=== PATIENT | female | born 1945 | race Two or more races ===

== ENCOUNTER → 2025-04-05 | Outpatient (CLI) | payer MEDICARE, MEDICAID, SELFPAY ==
--- NOTE | 2025-04-05 14:15 | XR_ITS ---
Examination: Screening digital mammography, bilateral Computer aided detection 3-D breast Tomosynthesis, bilateral Date and time of exam: April 05, 2025 1503 hours Compared to mammograms dating to January 12, 2020 Indication: Screening Technique: Nonmagnified MLO, CC views of the breasts to been obtained, reconstructed from 3-D Tomosynthesis images. R2 computer aided detection program utilized for evaluation of suspicious masses and/or abnormal calcifications. 3-D Tomosynthesis images obtained. Findings: Scattered areas of fibroglandular density Scar formation left breast consistent with treated left breast cancer Benign calcifications No interval suspicious masses Impression: BI-RADS category II: Benign Findings. Recommend 1 year follow-up mammogram.
== END | disposition home or self-care (01) ==
LOC: CDIM 13:53
PROVIDERS: PCP Physician Assistant; Referring Provider Physician Assistant; Visit Provider Physician Assistant
DX: Z12.31 Encounter for screening mammogram for malignant neoplasm of breast (principal); R92.323 Mammographic fibroglandular density, bilateral breasts; R92.1 Mammographic calcification found on diagnostic imaging of breast
CPT/HCPCS: 77063; 77067

== ENCOUNTER 2025-06-07 10:57 | Inpatient (IN) | payer MEDICARE, MEDICAID, SELFPAY ==
[2025-06-07] VITALS (8 sets, daily range): BP systolic 165–183; BP diastolic 55–125; PULSE 66–96; RESP 16–97; TEMP 36.6–37; O2SAT 95–99; BMI 28.7
--- NOTE | 2025-06-07 | XR_ITS ---
Examinations: MRI Brain without intravenous contrast. MRA brain without intravenous contrast. MRA carotids without intravenous contrast 3-D vascular reconstructions Date and time of exam: June 07, 2025, 1834 hrs., Comparison June 25, 2023 Indications: Stroke alert this a.m., onset focal neurologic deficit including right-sided facial droop slurred speech Technique: Multiple axial and sagittal images of the brain have been obtained MRA brain carotid images without contrast obtained, including 3-D postprocessing, vascular maximum intensity projection images Findings: Sellaturcica is not enlarged. The optic chiasm and infundibular stalk are not remarkable. Prepontine and interpeduncular cisterns are not enlarged. No localized enlargement of the medulla or fahad. Fourth ventricle and cerebellar tonsils normal in position. Subacute hemorrhage is not seen. Fourth ventricle is midline. Mass in the cerebellopontine angle region is not evident. 7th and 8th nerve complexes exhibits symmetry. Globes are symmetrical with no retro-orbital mass. Increased white matter signal prominent including old infarct left occipital lobe and old infarct right thalamus Diffusion-weighted images demonstrate no focus of restricted diffusion Mass-effect upon the ventricular system is not identified. MRA carotid images severely degraded by patient motion. 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
--- NOTE | 2025-06-07 11:14 | EKG_ITS ---
[facility] Test Date: 2025-06-07 Pat Name: CATALINA LUTHER Department: Room: - Gender: Female [place] [employer]: : 1945 Requested By: Castro Mittal Order Number: [id number] Reading MD: Castro Mittal Measurements Intervals Sparkill Rate: 63 P: 3 WV: 150 QRS: -36 QRSD: 138 T: -20 QT: 412 QTc: 424 Interpretive Statements SINUS RHYTHM WITH SINUS ARRHYTHMIA INDETERMINATE AXIS RIGHT BUNDLE BRANCH BLOCK [120+ ms QRS DURATION, UPRIGHT V1, 40+ ms S IN I/aVL/V4/V5/V6] MODERATE T-WAVE ABNORMALITY, CONSIDER LATERAL ISCHEMIA [-0.1+ mV T-WAVE IN I/aVL/V5/V6] No previous ECG available for comparison /[id number]/S0/[id number].pdf
--- NOTE | 2025-06-07 11:14 | XR_ITS ---
Examination: CTA carotids with intravenous contrast CTA brain, head with intravenous contrast. 2-D sagittal, coronal reconstructions. 3-D reconstructions. Exam date and time: June 07, 2025, 11:40 AM INDICATIONS: Stroke alert today, onset focal neurologic deficit, blurred vision, stroke alert June 24, 2023, large acute infarct left occipital lobe on MR brain June 25, 2023 CTDI: vol (mGy) 18.7 DLP: (mGycm) 398 Technique: Multiple CTA axial brain, head carotid images post intravenous contrast injection 75 cc, [id number]. 2-D sagittal, coronal reconstructions. 3-D reconstructions, 3-D post processing including vascular maximum intensity projection images. Low dose protocols were performed. One or more of the following dose reduction techniques were used; automated exposure control, adjustment of the mA and/or KV according to patient size, use of iterative reconstruction technique. Findings: No significant common carotid carotid bifurcation or internal carotid artery stenoses Dominant left vertebral artery with no critical stenoses in the neck No cerebral large vessel arterial occlusions or thrombus IMPRESSION: No significant neck arterial stenoses No cerebral large vessel arterial occlusions or thrombus
--- NOTE | 2025-06-07 11:14 | XR_ITS ---
Examination: CT brain head without contrast. 2-D sagittal coronal reconstructions Date and time of exam:June 07, 2025 1134 hours, comparison December 23, 2023 INDICATIONS: Stroke alert, onset focal neurologic deficit dizziness beginning 8:00 AM this morning CTDI: vol (mGy):43.7 DLP: (mGycm):2 Technique: Multiple CT axial sections of the brain have been obtained, 5 mm slice thickness. Contrast has not been administered. 2-D sagittal, coronal reconstructions have been obtained Low dose protocols were performed. One or more of the following dose reduction techniques were used; automated exposure control, adjustment of the mA and/or KV according to patient size, use of iterative reconstruction technique. Findings: No significant ventricular enlargement. Stable cerebral calcifications Stable area of encephalomalacia left occipital lobe Small old appearing infarct in the left cerebellar hemisphere Again noted frontal atrophy Intra-axial or extra-axial hemorrhage density is not seen. No mass effect or midline shift Basal cisterns are not remarkable. Fourth ventricle is midline. Cranial vault intact. Impression: Negative for acute hemorrhage, mass effect or midline shift
--- NOTE | 2025-06-07 11:14 | XR_ITS ---
Examination: AP chest single view Technique one AP portable upright chest single view Date and time: June 07, 2025, 1201 hours INDICATIONS: Stroke alert today. FINDINGS: Normal heart size No aspiration pneumonia Mild accentuation basilar bronchovascular markings Prominent osteopenia IMPRESSION: Basilar bronchitis pattern
--- NOTE | 2025-06-07 11:15 | EDNOTE_ITS ---
ED General RME/HPI General Chief complaint: Neuro Symptoms/Deficit Stated complaint: DIZZINESS AND CHEST PAIN THIS AM Time Seen by Provider: 06/07/25 11:13 Arrival date/time: 06/07/25 10:57 CC: Dizziness, left facial twisting . HPI onset at 8 AM this morning abrupt onset. Patient has a history of a stroke with mildly baseline right sided facial droop and mildly slurred speech which is confirmed as baseline unchanged from previous stroke 2 years ago. Patient states superintendent track took off her blood thinners because she is on too many medications . Family member at bedside's confirms patient's conditions. Patient is otherwise awake alert with no other focal deficits. Related Data Home Medications ?Medication ?Instructions ?Recorded ?Confirmed lorazepam 0.5 mg tablet (Ativan) 0.5 mg PO Q8HR PRN AN XIETY (MILD) 01/18/14 06/07/25 #0 tabs alprazolam 1 mg tablet 1 mg PO Q8HR PRN anxiety 06/07/25 hydrocodone 5 mg-acetaminophen 325 1 tab PO BID PRN pa in 06/07/25 06/07/25 mg tablet latanoprost 0.005 % eye drops 1 drp ophthalmic (eye) H S 06/07/25 06/07/25 omeprazole 40 mg capsule,delayed 40 mg PO DAILY 06/07/25 release Previous Rx's ?Medication ?Instructions ?Recorded lorazepam 0.5 mg tablet 0.5 mg PO Q12HR Anxiety #10 tabs 10/19/15 aspirin 81 mg tablet,delayed 81 mg PO QDAY #30 tabs release atorvastatin 80 mg tablet 80 mg PO QDAY #30 tabs 06/26 Allergies Allergy/AdvReac Type Severity Reaction Status Date / Time No Known Allergies Allergy Verified 06/07/25 11:01 Review of Systems Review of Systems Narrative Review of Systems: GEN: No fever, no chills, no weight loss EYES: No discharge, no visual changes, no pain HEENT: No ear pain, no congestion, no sore throat PULM: No shortness of breath, no cough, no congestion CV: No chest pain, no dyspnea on exertion, no palpitations GI: No nausea, no vomiting, no diarrhea, no pain, no constipation : No frequency, no urgency, no dysuria MUSC/SKEL: No joint pain, no back pain SKIN: No rash PSYCH: No hallucinations, no depression HEME/LYMPH: No easy bleeding or bruising tendencies NEURO: No weakness, no headache Past Medical History Past Medical History CARDIAC: Positive Hypertension; Negative Congestive Heart Failure RESPIRATORY: Negative Chronic Obstructive Pulmonary Disease (COPD) GENITOURINARY: Negative Renal Disease REPRODUCTIVE: Positive Breast Cancer MUSCULOSKELETAL: Positive Arthritis ENDOCRINE: Positive Diabetes Mellitus Type 2; Negative Diabetes Mellitus Type 1 PSYCHO/SOCIAL: Positive Anxiety OTHER HISTORY: Positive Radiation Therapy and Breast Cancer Social History SMOKING STATUS: Never smoker SUBSTANCE USE: does not use ED Exam Narrative Physical exam: [General: Minimal discomfort not in any acute distress Head normocephalic HEENT: Eyes pupils are PERRLA EOMs are intact no vertical or horizontal nystagmus. Mouth Brigantine dry membranes uvula is midline swallow symmetrical phonation is slightly slurred secondary to right sided facial droop note: Related to an old CVA from 2 years ago. All other subsystems within acceptable limits Neck is supple nontender Chest equal chest rise nontender to palpation Respiratory: Clear to auscultation no wheezes crackles or rubs CV: Rate rhythm is regular no murmurs rubs or clicks Abdomen is distended secondary to body habitus soft nontender no masses positive bowel sounds all 4 quadrants Back: No CVA tenderness no spinous process tenderness from cervical spine thoracic and lumbar spine Skin: Intact no petechiae rash induration ulceration or crepitus Extremities: Moving all extremity against resistance cap refill less than 2 seconds neurosensory intact Neuro: Awake alert oriented x3 Glascow coma 15 no focal deficits] Course Course Course Narrative: Per teleneurology TNK was offered but declined. Patient was put on dual antiplatelet Therapy and admitted. Patient's case discussed with Dr. Del Castillo, resident for Dr. Lawanda Henriquez agrees to except the patient for admission. Quality Measures none Orders Category Date Time Status Bedside Blood Glucose NOW Care 06/07/25 11:14 Active Forest Ecology Professor NOW Care 06/07/25 11:14 Active Continuous Pulse Oximetry NOW Care 06/07/25 11:14 Active EKG (ED ONLY) *Do not use* NOW Care 06/07/25 11:14 Completed In and Out Catheter NEEDED Care 06/07/25 11:14 Active Insert IV NOW Care 06/07/25 11:14 Active NIH Stroke Scale now Care 06/07/25 11:14 Active NPO NOW Care 06/07/25 11:14 Active Nurse Swallow Screen x1 Care 06/07/25 11:14 Active Consult to Neurology / Tele-Neurology Routine Cons 06/07/25 11:[address] angio stroke protocol Stat Exams 06/07/25 11:[address] stroke protocol Stat Exams 06/07/25 11:14 Completed EKG (ED Only) Stat Exams 06/07/25 11:14 Draft XR chest 1V portable Stat Exams 06/07/25 11:14 Completed CBC Stat Lab 06/07/25 11:28 Completed Comprehensive Metabolic Panel Stat Lab 06/07/25 11:28 Completed Drug Screen,Urine Stat Lab 06/07/25 11:30 Completed HCG Titer if Positive Stat Lab 06/07/25 11:28 Completed Magnesium Stat Lab 06/07/25 11:28 Completed Partial Thromboplastin Time Stat Lab 06/07/25 11:28 Completed Prothrombin Time with INR Stat Lab 06/07/25 11:28 Completed Troponin I Stat Lab 06/07/25 11:28 Completed Urinalysis, C/S if Indicated Stat Lab 06/07/25 11:30 Completed Urine Culture Stat Lab 06/07/25 11:30 Received Aspirin [Ecotrin] Med 06/07/25 12:06 Discontinued 81 mg PO X1 ONE Clopidogrel [Plavix] Med 06/07/25 12:06 Discontinued 300 mg PO X1 ONE Ondansetron Inj [Zofran Inj] Med 06/07/25 11:14 Discontinued 4 mg IVP Q4HR PRN Oxygen Delivery NOW RT 06/07/25 11:14 Active Vital Signs Vital signs: Vital Signs Temperature 98.6 F 06/07/25 11:07 Pulse Rate 84 06/07/25 11:07 Respiratory Rate 16 06/07/25 11:07 Blood Pressure 168/80 H 06/07/25 11:07 Pulse Oximetry (%) 95 06/07/25 11:07 Oxygen Delivery Method Room Air 06/07/25 11:07 Discharge Plan Plan Patient Disposition: Admit Acute Care w/in Hospital Patient condition on transfer: Stable Problem List Clinical Impression: CVA (cerebral vascular accident) PA/CURRICULUM ASSISTANT PRINCIPAL Supervising Physician PA/CURRICULUM ASSISTANT PRINCIPAL Supervising Physician: Castro Mayo ENP [facility] Clinical Information Provided by: patient Medical Records reviewed [facility] Meds/Rx considered, not ordered None Labs/Rad/Tests considered, not ordered None Chronic Illness/Social Conditions Explain: Prior CVA note: Was taken off blood thinner medications by superintendent track. Labs Labs: interpreted by me Lab(s) Interpretation(s): CBC shows a mild leukocytosis 11.1 no anemia thrombocytopenia Coags within acceptable limits CMP shows glucose of 119 otherwise no other electrolyte imbalances no renal impairment transaminitis T. bili elevation Troponin is undetectable UDS is positive for benzos Imaging Imaging interpretation: interpreted by me Imaging Interpretation(s): CT head is interpreted by me read by radiology as negative for any acute finding CTA head and neck is interpreted me read by radiology shows no LVO's, no stenoses Medication Administration(s) none Medication Administration History Acetaminophen (Acetaminophen 325 Mg Tablet) 650 mg PO Q6H PRN PRN Reason: Fever >100.1 or pain Stop: 07/07/25 14:46 Aspirin (Aspirin Ec 81 Mg Tabec) 81 mg PO DAILY YORDAN Stop: 07/08/25 08:59 Atorvastatin Calcium (Atorvastatin Calcium 20 Mg Tablet) 80 mg PO HS YORDAN Stop: 07/07/25 20:59 Dextrose (Dextrose 50%-Water Inj 50 Ml Syringe) 25 ml IV Q15MIN PRN PRN Reason: BG 50-70 responsive npo pt Stop: 07/07/25 16:53 Dextrose (Dextrose 50%-Water Inj 50 Ml Syringe) 50 ml IV Q15MIN PRN PRN Reason: BG <50 OR BG <70 & pt unresponsive Stop: 07/07/25 16:53 Enoxaparin Sodium (Enoxaparin Sod Inj 40 Mg/0.4 Ml Syringe) 40 mg SC QDAY YORDAN Stop: 06/22/25 08:59 Glucagon (Glucagon Inj 1 Mg Vial) 1 mg IM Q15MIN PRN PRN Reason: BG <70, and no IV access Insulin Human Lispro (Insulin Lispro (Admelog) 1 Unit/0.01 Ml Unit) 0 unit SC Q6HR YORDAN; Protocol Stop: 07/07/25 17:59 Labetalol HCl (Labetalol Inj 5 Mg/Ml Vial 20 Ml) 10 mg IVP Q4HR PRN PRN Reason: SBP>220/110 Stop: 07/07/25 14:56 Ondansetron HCl (Ondansetron Inj 2 Mg/Ml Inj 2 Ml) 4 mg IVP Q6H PRN; Protocol PRN Reason: NAUSEA OR VOMITING Stop: 07/07/25 14:46 Pantoprazole Sodium (Pantoprazole Inj 40 Mg Vial) 40 mg IVP QDAY YORDAN Stop: 07/08/25 08:59 Sennosides (Senna Tablet) 1 tab PO QDAY PRN; Protocol PRN Reason: constipation Stop: 07/07/25 14:46 Sennosides (Senna/Docusate Sod 1 Tab Tablet) 1 tab PO QDAY PRN; Protocol PRN Reason: CONSTIPATION Stop: 07/07/25 16:47 Discontinued Medications Aspirin (Aspirin Ec 81 Mg Tabec) 81 mg PO X1 ONE Stop: 06/07/25 12:07 Last Admin: 06/07/25 12:16 Dose: 81 mg Documented By: VL Clopidogrel Bisulfate (Clopidogrel Bisulfate 75 Mg Tablet) 300 mg PO X1 ONE Stop: 06/07/25 12:07 Last Admin: 06/07/25 12:16 Dose: 300 mg Documented By: KATE Clopidogrel Bisulfate (Clopidogrel Bisulfate 75 Mg Tablet) 75 mg PO DAILY [facility] Stop: 07/08/25 08:59 Ondansetron HCl (Ondansetron Inj 2 Mg/Ml Inj 2 Ml) 4 mg IVP Q4HR PRN PRN Reason: NAUSEA OR VOMITING Stop: 07/07/25 11:13 Pharmacy Consult (Pharmacy To Consult Patient) 1 each XX PRN PRN PRN Reason: CONSULT Stop: 07/07/25 20:20 Diagnosis Differential Diagnosis ED Complaint MDM: CVA TIA intracranial hemorrhage
[2025-06-07 11:36] LABS: Basophils # (Auto) 0.0 Thou/mm3 (0.0-0.2); Basophils % (Auto) 0 % (0-2.5); Eosinophils # (Auto) 0.5 Thou/mm3 (0.0-0.5); Eosinophils % (Auto) 5 % (0-10); Hematocrit 40.0 % (36.0-46.0); Hemoglobin 13.1 g/dL (12.0-16.0); Immature Granulocytes Auto 0.04 Thou/mm3 (0.00-0.00); Lymphocytes # (Auto) 3.0 Thou/mm3 (1.0-4.8); Lymphocytes % (Auto) 27 % (10-50); Mean Corpuscular HGB Conc 32.8 g/dl (31.0-37.0); Mean Corpuscular Hemoglobin 29.7 pg (25.0-35.0); Mean Corpuscular Volume 91 fL (80-100); Monocytes # (Auto) 0.6 Thou/mm3 (0.0-0.8); Monocytes % (Auto) 5 % (0-12); Neutrophils # (Auto) 6.9 Thou/mm3 (1.8-7.7); Neutrophils % (Auto) 63 % (37-80); Nucleated Red Blood Cell # 0.00 Thou/mm3 (0.00-0.00); Nucleated Red Blood Cell % 0 /100 WBC (0); Platelet Count 268 Thou/mm3 (140-440); RDW Standard Deviation 45.4 fL (36.4-46.3); Red Blood Count 4.41 Miln/mm3 (4.00-5.20); White Blood Count 11.1 Thou/mm3 (3.6-11.0)
[2025-06-07 11:51] LABS: INR 1.0 (0.9-1.3); Partial Thromboplastin Time 26.1 Seconds (22.0-36.0); Prothrombin Time 10.9 Seconds (9.0-12.2)
[2025-06-07 11:53] LABS: Alanine Aminotransferase 16 U/L (10-49); Albumin, Serum 5.0 gm/dL (3.4-4.8); Albumin/Globulin Ratio 1.7 (1.2-2.2); Alkaline Phosphatase 80 U/L (46-116); Anion Gap 10 (7-16); Aspartate Amino Transferase 23 U/L (0-34); BUN/Creatinine Ratio 10 Ratio (12-20); Bilirubin,Total 0.3 mg/dL (0.3-1.2); Blood Urea Nitrogen 9 mg/dL (9-23); Calcium 9.6 mg/dL (8.3-10.6); Calcium (Corrected) 9.6 mg/dL (8.5-10.1); Carbon Dioxide 23.4 mMol/L (20.0-31.0); Chloride 106 mMol/L (98-107); Creatinine (Component) 0.9 mg/dL (0.6-1.3); Estimated Creatinine Clearance 47.6 mL/min (>60); Globulin 3.0 gm/dL (2.3-3.5); Glucose 119 mg/dL (74-106); Magnesium 2.1 mg/dL (1.6-2.6); Osmolality,Calculated 277 (275-295); Potassium 4.1 mMol/L (3.4-5.1); Sodium 139 mMol/L (136-145); Total Protein 8.0 gm/dL (5.7-8.2); Troponin I < 0.002 ng/mL (0.0-0.045); eGFR > 60 See Note
[2025-06-07 11:59] LABS: HCG Titer if Positive Negative
--- NOTE | 2025-06-07 12:14 | ESCONSULT_ITS ---
History of Present Illness Consult Narrative cc:: cc: Meds Home Medications and Allergies Home Medications ?Medication ?Instructions ?Recorded ?Confirmed ?Type lorazepam 0.5 mg tablet (Ativan) 0.5 mg PO Q8HR PRN AN XIETY (MILD) 01/18/14 History #0 tabs Allergies Allergy/AdvReac Type Severity Reaction Status Date / Time No Known Allergies Allergy Verified 06/07/25 11:01 Exam - Neurology Vital Signs Temp Pulse Resp BP Pulse Ox O2 Del Method 98.6 F 84 16 168/80 H 95 Room Air 06/07/25 11:07 06/07/25 11:07 06/07/25 11:07 06/07/25 11:07 06/07/25 11:07 06/07/25 11:07 Results Labs 06/07/25 11:28 06/07/25 11:28 Labs: Short CBC 06/07/25 Range/Units 11:28 WBC 11.1 H (3.6-11.0) Thou/mm3 Hgb 13.1 (12.0-16.0) g/dL Hct 40.0 (36.0-46.0) % Plt Count 268 (140-440) Thou/mm3 BMP 06/07/25 11:28 Sodium 139 Potassium 4.1 Chloride 106 Carbon Dioxide 23.4 BUN 9 Creatinine 0.9 Glucose 119 H Calcium 9.6 Cardiac Enzymes 06/07/25 Range/Units 11:28 Troponin I < 0.002 (0.0-0.045) ng/mL Liver Function 06/07/25 Range/Units 11:28 Total Bilirubin 0.3 (0.3-1.2) mg/dL AST 23 (0-34) U/L ALT 16 (10-49) U/L Alkaline Phosphatase 80 (46-116) U/L Albumin 5.0 H (3.4-4.8) gm/dL Impressions Impression: [facility] Patient Name:???CATALINA LUTHER Date of :???1945 Identification Number:??? Date of Service:???06/07/2025 11:18:23 Diagnosis:?R42 - Dizziness/ Vertigo/ Giddiness ?R26.81 - Unsteady gait Impression: ?PT is a 80 yo female with hx of a prior left occipital stroke in June 2023 with some baseline gait unsteadiness, basilar artery stenosis, HTN, HLP with acute onset of gait unsteadiness since 08:00 today. ON exam, NIHSS was 0 and pt was able to walk from her stretcher to the CT scan with only standby assist although she states she felt unsteady. ?Because pt was within the window for iv-thrombolytics ?with no contraindications, the role of TNK as well as the risks and benefits were discussed with patient and her son. PT and her son decided not to receive TNK due to her improving deficits and concern about the risks. CTA head and neck showed no obvious large vessel occlusion, but will follow-up with the final report. . ? ?Recommend stroke work-up with a routine MRI brain without contrast, telemetry, TTE, lipid panel, hemoglobin AIC. ? ?Can start pt on dual antiplatelet therapy with Plavix 300 mg and ASA 81 mg x 1 in the ED once the patient passes a dysphagia screen or swallow evaluation followed by ASA 81 mg daily and Plavix 75 mg daily ? ?Would allow permissive HTN up to 220/120 x 24 hours. Our recommendations are outlined below. Recommendations: ? Stroke/Telemetry Floor ? Neuro Checks (Q4) ? Bedside Swallow Eval ? DVT Prophylaxis ? IV Fluids, Normal Saline ? Head of Bed 30 Degrees ? Euglycemia and Avoid Hyperthermia (PRN Acetaminophen) ? Antihypertensives PRN if Blood pressure is greater than 220/120 or there is a concern for End organ damage/contraindications for permissive HTN. If blood pressure is greater than 220/120 give labetalol PO or IV or Vasotec IV with a goal of 15% reduction in BP during the first 24 hours. ?MRI brain without contrast ?TTE ?Lipid panel ?Hemoglobin AIC?Start pt on dual antiplatelet therapy with Plavix 300 mg and ASA 81 mg x 1 in the ED once the patient passes a dysphagia screen or swallow evaluation followed by ASA 81 mg daily and Plavix 75 mg daily Sign Out: ? Discussed with Emergency Department Provider Metrics: Last Known Well: 06/07/2025 08:00:00 Dispatch Time: 06/07/2025 11:18:23 Arrival Time: 06/07/2025 10:57:00 Initial Response Time: 06/07/2025 11:21:01Symptoms: Dizziness. Initial patient interaction: 06/07/2025 11:24:45 NIHSS Assessment Completed: 06/07/2025 11:41:48Patient is not a candidate for Thrombolytic. Thrombolytic Medical Decision: 06/07/2025 11:59:02Patient was not deemed candidate for Thrombolytic because of following reasons: Patient/Family declined . CT Head: I personally reviewed all the CT images that were available to me and it showed: encephalomalacia in the left occipital [employer] territory, but no acute ischemic changes, no ICH Primary Provider Notified of Diagnostic Impression and Management Plan on: 06/07/2025 12:05:47 History of Present Illness:Patient is a 80 year old Female. Patient was brought by private transportation with symptoms of Dizziness. PT is a 80 yo female with hx of a prior left occipital stroke in June 2023 with some baseline gait unsteadiness, basilar artery stenosis, HTN, HLP who presents to the ED with dizziness. PT reports she woke up today in her USOH and took a shower. AT 8 AM, she suddenly because dizziness which she describes as a feeling of giat unsteadiness like she is going to fall. She had no headache, visual changes, weakness, numbness. Pt walks with a cane at baseline. Pt's son states her clinical exercise specialist took her off of antiplatelet therapy a few months ago for unclear reasons. Past Medical History: ?Hypertension ?Diabetes Mellitus ?Stroke ?There is no history of Atrial Fibrillation ?There is no history of Coronary Artery Disease Other PMH:? breast cancer Medications: No Anticoagulant use? No Antiplatelet use Reviewed EMR for current medications Allergies:? NKDA Social History: Smoking: Yes Family History: There is no family history of premature cerebrovascular disease pertinent to this consultation ROS : 14 Points Review of Systems was performed and was negative except mentioned in HPI. Past Surgical History: There Is No Surgical History Contributory To Today?s Visit Examination: BP(168/80),?Pulse(84),?Blood Glucose(140) 1A: Level of Consciousness - Alert; keenly responsive?+ 0 1B: Ask Month and Age - Both Questions Right?+ 0 1C: Blink Eyes & Squeeze Hands - Performs Both Tasks?+ 0 2: Test Horizontal Extraocular Movements - Normal?+ 0 3: Test Visual Bolden - No Visual Loss?+ 0 4: Test Facial Palsy (Use Grimace if Obtunded) - Normal symmetry?+ 0 5A: Test Left Arm Motor Drift - No Drift for 10 Seconds?+ 0 5B: Test Right Arm Motor Drift - No Drift for 10 Seconds?+ 0 6A: Test Left Leg Motor Drift - No Drift for 5 Seconds?+ 0 6B: Test Right Leg Motor Drift - No Drift for 5 Seconds?+ 0 7: Test Limb Ataxia (FNF/Heel-[place]) - No Ataxia?+ 0 8: Test Sensation - Normal; No sensory loss?+ 0 9: Test Language/Aphasia - Normal; No aphasia?+ 0 10: Test Dysarthria - Normal?+ 0 11: Test Extinction/Inattention - No abnormality?+ 0 NIHSS Score:?0 NIHSS Free Text :?PT was unable to walk a few steps to the CTA table from the gurnery unassisted. Pre-Morbid Modified [place] Scale: 1 Points = No significant disability despite symptoms; able to carry out all usual duties and activities Spoke with :?Dannie Mayo NP This consult was conducted in real time using interactive audio and video technology. Patient was informed of the technology being used for this visit and agreed to proceed. Patient located in hospital and provider located at home/office setting. Patient is being evaluated for possible acute neurologic impairment and high probability of imminent or life-threatening deterioration. I spent total of 51 minutes providing care to this patient, including time for face to face visit via telemedicine, review of medical records, imaging studies and discussion of findings with providers, the patient and/or family. Dr Iesha Duarte [facility] For Inpatient follow-up with [facility] physician please call [facility] at . As we are not an outpatient service for any post hospital discharge needs please contact the hospital for assistance. If you have any questions for the [facility] physicians or need to reconsult for clinical or diagnostic changes please contact us via [facility] at . Signature :Ugo Duarte
[2025-06-07] MEDS: ASPIRIN EC 81 MG TABEC PO (12:16)
[2025-06-07] MEDS: CLOPIDOGREL BISULFATE 75 MG TABLET 300 MG PO (12:16)
[2025-06-07 12:20] LABS: Collection Type, Urine Clean Catch
[2025-06-07 12:45] LABS: Amphetamine/Methamp Scrn,U Negative (Negative); Barbiturate Screen,Urine Negative (Negative); Benzodiazepines Screen,Urine Positive (Negative); Benzoylecgonine Screen, Ur Negative (Negative); Fentanyl Screen,Urine Negative (Negative); Opiate Screen,Urine Negative (Negative); THC Screen,Urine Negative (Negative)
[2025-06-07 12:48] LABS: Bacteria,Urine 3+; Bilirubin,Urine Negative (Negative); Blood,Urine 1+ (Negative); Clarity,Urine Turbid (Clear/Hazy); Color,Urine Lt-Yellow (Lt Yel-Yel); Glucose, Urine Negative (Negative); Ketones,Urine Negative (Negative); Leukocyte Esterase,Urine Positive (Negative); Nitrite,Urine Positive (Negative); PH,Urine 7.0 (5.0-7.0); Protein,Urine Negative (Neg - Trace); RBC,Urine 20 /hpf (0-3); Specific Gravity,Urine 1.005 (1.001-1.035); Squamous Epithelial Cell,Urine 1 /hpf (0-5); Urobilinogen,Urine Negative mg/dL (0.0-1.0); WBC,Urine 253 /hpf (0-5)
[2025-06-07 13:19] LABS: Culture Indicated,Urine Yes
--- NOTE | 2025-06-07 14:33 | PD.RESCONSUL ---
HPI Data of Consult Consult date: 06/07/25 Primary Care Provider: Ping Henry PA-C Consult Narrative Reason for consult: stroke w/up History of present illness: This patient is a 78-year-old female with past medical history of left occipital lobe stroke in June 2023 with baseline gait unsteadiness, basilar artery stenosis, anxiety, esophageal ulcers, hypertension, type 2 diabetes, breast cancer in remission, osteoporosis and osteoarthritis presented to the ED on 06/07/2025 with acute onset gait unsteadiness noted at 8 AM in the morning. Patient was able to ambulate out of the stretcher and was able to standby with assistance although she stated that she feels unsteady. Although patient was within the window of IV thrombolytics with no contraindication, patient and her son refused to receive TNK due to improvement in her deficits and concerns about the risk. Patient denied any loss of consciousness, chest pain, breathing problem or any other issue. NIHSS score 0. Head CT and head and neck CTA showed no acute changes. Labs showed hemoglobin 13, white count 11 and platelet normal. Electrolyte panel unremarkable. Blood glucose 119. Patient was given loading dose of Plavix 300 mg and aspirin 81 mg x 1 in the ED. Patient passed dysphagia screen. Patient is admitted for further stroke workup. Per patient's son, patient was going to office for PCP [Dr. Feng] for follow-up and felt dizzy associated with headache. No loss of consciousness or vision changes reported. Denied any chest pain. Patient felt achy but no acute weakness reported. Past medical history as above Past surgical history:Left side mastectomy SH: Smokes cigarettes 1 or 2 cigarettes x 30 yrs ago, Denies drinking alcohol or illicit drug use Allergies: No known drug allergies FH: No family history of CVA. Home medications: alprazolam 0.5 mg half tablet TID for anxiety, pantoprazole 40 mg once daily Recommended to continue aspirin 81 mg once daily and atorvastatin 80 mg HS daily. DC Plavix. Allowing permissive hypertension for first 24 hours. MRI brain was negative for stroke. Will follow-up echo with bubble study. Will follow other blood labs.Antihypertensives PRN if Blood pressure is greater than 220/120 or there is a concern for End organ damage/contraindications for permissive HTN. If blood pressure is greater than 220/120 give labetalol PO or IV or Vasotec IV with a goal of 15% reduction in BP during the first 24 hours. cc:: cc: Review of Systems Review of Systems Systems Reviewed: All systems reviewed, normal except as documented Past Medical History Past Medical History CARDIAC: Positive Hypertension; Negative Congestive Heart Failure RESPIRATORY: Negative Chronic Obstructive Pulmonary Disease (COPD) GENITOURINARY: Negative Renal Disease REPRODUCTIVE: Positive Breast Cancer MUSCULOSKELETAL: Positive Arthritis ENDOCRINE: Positive Diabetes Mellitus Type 2; Negative Diabetes Mellitus Type 1 PSYCHO/SOCIAL: Positive Anxiety OTHER HISTORY: Positive Radiation Therapy and Breast Cancer Social History SMOKING STATUS: Never smoker SUBSTANCE USE: does not use Exam Vital Signs Temp Pulse Resp BP Pulse Ox O2 Del Method 98.6 F 84 16 168/80 H 95 Room Air 06/07/25 11:07 06/07/25 11:07 06/07/25 11:07 06/07/25 11:07 06/07/25 11:07 06/07/25 11:07 Narrative Exam GENERAL APPEARANCE: AxOx4, generally well-appearing female no acute distress. HEENT: NC, AT. MMM. EOMI, clear conjunctiva, oropharynx clear. NECK: Supple without lymphadenopathy. No stiffness or restricted ROM. HEART:Regular rate and regular rhythm, normal S1/S2, no m/r/g LUNGS: CTAB, moving air well. No crackles or wheezes are heard. ABDOMEN: Soft, nontender, nondistended with good bowel sounds heard. BACK: No CVAT, no obvious deformity. EXTREMITIES: Without cyanosis, clubbing or edema. NEUROLOGICAL: Grossly nonfocal. Alert and oriented, moving all 4 extremities. CN not formally tested but appear grossly intact. Headache and Dizziness+ Skin: Warm and dry without any rash. Psych: appriopriate mood and affect Results Labs 06/08/25 04:56 06/08/25 04:56 Labs: Short CBC 06/07/25 Range/Units 11:28 WBC 11.1 H (3.6-11.0) Thou/mm3 Hgb 13.1 (12.0-16.0) g/dL Hct 40.0 (36.0-46.0) % Plt Count 268 (140-440) Thou/mm3 BMP 06/07/25 11:28 Sodium 139 Potassium 4.1 Chloride 106 Carbon Dioxide 23.4 BUN 9 Creatinine 0.9 Glucose 119 H Calcium 9.6 Cardiac Enzymes 06/07/25 Range/Units 11:28 Troponin I < 0.002 (0.0-0.045) ng/mL Liver Function 06/07/25 Range/Units 11:28 Total Bilirubin 0.3 (0.3-1.2) mg/dL AST 23 (0-34) U/L ALT 16 (10-49) U/L Alkaline Phosphatase 80 (46-116) U/L Albumin 5.0 H (3.4-4.8) gm/dL Urine 06/07/25 Range/Units 11:30 Urine Color Lt-Yellow (Lt Yel-Yel) Urine Clarity Turbid A (Clear/Hazy) Urine pH 7.0 (5.0-7.0) Ur Specific [place] 1.005 (1.001-1.035) Urine Protein Negative (Neg - Trace) Urine Glucose (UA) Negative (Negative) Quality Measures Quality Measures VTE prophylaxis and stroke Suspected type of Stroke: Unknown at this time Last known well (date): 06/07/25 Last known well (time): 08:00 Tenecteplase given: Reason(s) Tenecteplase not given: Refusal not given Rehab services: PT evaluation ordered and Speech Language Pathology eval ordered VTE Prophylaxis: pharmaceutical Antithrombotic by day 2:: not indicated (describe) Statin ordered: >75 y/o moderate or high intensity dose Anticoagulation ordered for A-fib or flutter (current or hx): not indicated Advance care planning discussed with:: patient Medications Home Medications and Allergies Home Medications ?Medication ?Instructions ?Recorded ?Confirmed ?Type alprazolam 1 mg tablet 1 mg PO Q8HR PRN anxiety 06/07/25 06/07/25 History hydrocodone 5 mg-acetaminophen 325 1 tab PO BID PRN pain 06/07/25 06/07/25 History mg tablet latanoprost 0.005 % eye drops 1 drp ophthalmic (eye) HS 06/07/25 06/07/25 History omeprazole 40 mg capsule,delayed 40 mg PO DAILY 06/07/25 06/07/25 History release Allergies Allergy/AdvReac Type Severity Reaction Status Date / Time No Known Allergies Allergy Verified 06/07/25 11:01 Visit Medications Ondansetron HCl (Ondansetron Inj 2 Mg/Ml Inj 2 Ml) 4 mg IVP Q4HR PRN PRN Reason: NAUSEA OR VOMITING Stop: 07/07/25 11:13 Discontinued Medications Aspirin (Aspirin Ec 81 Mg Tabec) 81 mg PO X1 ONE Stop: 06/07/25 12:07 Last Admin: 06/07/25 12:16 Dose: 81 mg Clopidogrel Bisulfate (Clopidogrel Bisulfate 75 Mg Tablet) 300 mg PO X1 ONE Stop: 06/07/25 12:07 Last Admin: 06/07/25 12:16 Dose: 300 mg Assessment & Plan Plan This patient is a 78-year-old female with past medical history of left occipital lobe stroke in June 2023 with baseline gait unsteadiness, basilar artery stenosis, anxiety, esophageal ulcers, hypertension, type 2 diabetes, breast cancer in remission, osteoporosis and osteoarthritis presented to the ED on 06/07/2025 with acute onset gait unsteadiness noted at 8 AM in the morning. Symptoms started improving. CT brain without contrast and head and neck CTA were negative. Admitted for stroke workup. #Stroke workup #Gait unsteadiness ? History of prior stroke occipital lobe June 2023 Patient presented with acute onset gait unsteadiness around 8 AM in the morning. Patient was within the window of receiving TNK however patient and her son refused given improvement in the deficits and risks involved with TNK. Aspirin and Plavix bolus were given x 1 in the ED. EKG showed sinus rhythm. QTc 424. Head CT and head and neck CTA showed no acute pathology. Brain MRI was negative. No acute infarct.Large old infarct left occipital lobe. Small old infarct right thalamus Plan: Recommended to continue aspirin 81 mg once daily and atorvastatin 80 mg HS daily. DC Plavix as MRI brain is negative for acute stroke Rec one antiplatelet therapy given hx of gastric ulcers F/U with echo with bubble study Physical therapy Allowing permissive hypertension for first 24 hours Neurochecks Q4 hourly Notify Provider is SBP>220 and DBP>120 or less than 140/90 for first 24 h #History of type 2 diabetes #History of gastric ulcers #History of osteoporosis #History of breast cancer in remission Rest of the management as per primary care team. -- Plan of care discussed with neurologist, Dr Kate Thompson MD, PGY 3 Attending Provider Attestation/Addendum I have seen and examined the patient at the bedside and I agreed with the resident's findings, assessment and plan of care. Patient presenting symptoms are most likely related to either brainstem TIA/vertebrobasilar insufficiency. Reassurance given to the patient regarding the negative MRI brain for acute stroke. Continue with aspirin alone with statin with history of gastric ulcers in the past.
--- NOTE | 2025-06-07 14:47 | ECHO_ITS ---
Transthoracic Echo Report Ht (in): 62 Wt (lb): 157 Exam Location: [facility] Status: Emergency Physician Interventional Cardiologist: Lubna De Santiago Indications: Procedure Performed: BP: 124 / 55 HR: 68 MEASUREMENTS (Male / Female) Normal Values 2D ECHO LV Diastolic Diameter PLAX 4.5 cm 4.2 - 5.9 / 3.9 - 5.3 cm LV Systolic Diameter PLAX 2.9 cm IVS Diastolic Thickness 1.0 cm 0.6 - 1.0 / 0.6 - 0.9 cm LVPW Diastolic Thickness 1.0 cm 0.6 - 1.0 / 0.6 - 0.9 cm LV Relative Wall Thickness 0.4 LVOT Diameter 1.9 cm Ascending Aorta Diameter 3.0 cm M-MODE AV Cusp Separation MM 1.5 cm DOPPLER AV Peak Velocity 130.0 cm/s AV Peak Gradient 6.8 mmHg AV Mean Gradient 4.0 mmHg AV Velocity Time Integral 28.0 cm LVOT Peak Velocity 90.0 cm/s LVOT Peak Gradient 3.2 mmHg LVOT Velocity Time Integral 18.7 cm LVOT Cardiac Index 2016.9 cm?/min?m? AV Area Cont Eq vti 1.9 cm? AV Area Cont Eq pk 2.0 cm? MV Area PHT 3.1 cm? Mitral E Point Velocity 69.1 cm/s Mitral A Point Velocity 88.6 cm/s Mitral E to A Ratio 0.8 LV E' Lateral Velocity 8.4 cm/s Mitral E to LV E' Lateral Ratio 8.2 LV E' Septal Velocity 6.3 cm/s Mitral E to LV E' Septal Ratio 11.0 TR Peak Velocity 149.7 cm/s TR Peak Gradient 9.0 mmHg PV Peak Velocity 90.5 cm/s PV Peak Gradient 3.3 mmHg FINDINGS Left Ventricle Normal left ventricular size, wall thickness, systolic function with no obvious regional wall motion abnormalities. Normal left ventricular diastolic filling pattern for age. The ejection fraction is visually estimated at 55 %. Right Ventricle The right ventricle is normal in size and systolic function. Left Atrium The left atrium is normal by two-dimensional, color flow and Doppler imaging with no structural abnormalities, no thrombus formation present. Right Atrium The right atrium is normal by two-dimensional imaging, color flow and Doppler imaging with no structural abnormalities, no thrombus formation present. Atrial Septum The interatrial septum appears normal with no evidence of a shunt. Negative bubble study.No [id number] shunt demonstrated by agitated saline injection. Aorta The aorta is normal by two-dimensional, color flow and Doppler interrogation. Mitral Valve The mitral valve is normal by two-dimensional, color flow and Doppler interrogation.Trace mitral regurgitation. Aortic Valve The aortic valve is trileaflet. Mild sclerosis without stenosis. There is no significant aortic valve regurgitation. Tricuspid Valve The tricuspid valve is normal by two-dimensional, color flow and Doppler interrogation.there is trace tricuspid valve regurgitation. Pulmonic Valve The pulmonic valve is not well visualized. There is no significant pulmonic valve regurgitation. Vessels The pulmonary artery appears normal. The inferior vena cava pulmonary and hepatic veins appear normal. Pericardium The pericardium is normal by two-dimensional imaging. There is no significant pericardial effusion. CONCLUSIONS Indication: CVA workup Poor images over all but Bubble study was negative for any PFO or ASD. Consider WINIFRED if high index of clinical supsicion to rule out ant LA/ BETTIE thrombus. Normal left ventricular size and function. Estimated ejection fraction is 60- 65%. Stage 1 diastolic dysfunction. Normal Right ventricular size and function. Normal RVSP. Trace MR, TR and Mild AV sclerosis without stenosis. No significant change since the prior study of 06/26/2023 Darvin Dos Santos (Electronically Signed) Final Date: 08 June 2025 14:29
--- NOTE | 2025-06-07 15:52 | ESHP_ITS ---
<Statement entered by Charles Rae MD - 06/10/25 17:41> I reviewed above note and agree with findings and plans. I have also personally examined the patient with medicine team and went over assessment and plan with medical team including human resources intern and resident physician. <Statement entered by Alisa Del Castillo MD - 06/07/25 19:37> Patient is 80 yr female with PMH of CVA about 2 years ago with right hemiplegia, esophageal ulcers, t2dm, breast cancer in remission, and OA who presented to the ED presenting with weakness, left facial droop that started this morning. Patient was with her son going to PCP when symptoms began. They promptly left for the ED and telemetry neuro was consulted. NIHSS score 0.CTA head, CTA head and neck were negative. Teleneuro recommended TNK however son declined at that time. Symptoms have since resolved. Admit patient for completing stroke workup. Resume aspirin, Plavix, atorvastatin starting tomorrow. The patient's management plan was discussed with my attending physician Dr. Rae. Alisa Del Castillo, PGY-2 Documentation for date of: 06/07/25 HPI History of Present Illness Chief complaint: L face droop and slurred speech History of present illness: Ms Puga is a 80 yo woman with a pmh significant for CVA about 2 years ago with right hemiplegia, esophageal ulcers, t2dm, breast cancer in remission, and OA who presented to the ED with cc of L facial weakness and ground level fall in her bathroom. She states that she had an appointment scheduled to go to her PCP today, before she was feeling unwell when she woke up and was getting ready for her appointment. Her son noted that her L face was slighly contorted. She lives alone and is typically independent of her adls and iadls. Patient may not have been taking clopidogrel. unclear why. Social History: no smoking, no drinking, lives alone and is independent of adls and iadls PMH: breast cancer now in remission Surgical Hx: Left breast cancer surgery Med rec pending : ASA, atorvastatin 80, clopidogrel, lorazapam, meloxicam ROS pt endorses weakness and dizziness pt denies nausea, vision changes, ED course: VSS Pertinent labs WBC 11, UA + nitrites + 3+ bacteria, pending Ucx, Utox + benzos Pertinent imaging - CT Head: Negative for acute hemorrhage, mass effect or midline shift - CTA head and neck: No significant neck arterial stenoses No cerebral large vessel arterial occlusions or thrombus Tx ASA 81x1 plavix 300 x1 Pt admitted for stroke rule out. Exam Vital Signs Temp Pulse Resp BP Pulse Ox O2 Del Method 98.6 F 84 16 168/80 H 95 Room Air 06/07/25 11:07 06/07/25 15:09 06/07/25 15:09 06/07/25 11:07 06/07/25 11:07 06/07/25 11:07 Narrative Exam GENERAL: no acute distress, AAO x3, comfortably laying in bed HEENT: Head AT/ NC. Mucous membranes moist. PERRL. , poor dentition NECK: Supple, no lymphadenopathy, no carotid bruits. CARDIOVASCULAR: RRR. Normal S1/S2, No m/r/g. No pitting edema of bilateral LEs. RESPIRATORY: CTAB. No wheezing, rhonchi, crackles. GASTROINTESTINAL: Abdomen soft, non tender no palpable masses. Bowel sounds present MUSCULOSKELETAL:? No cyanosis or edema, no visible joint swelling. NEUROLOGICAL: Right flattening of nasolabial fold (chronic), no deficits noted on the L face. some slurred speech. able to lift extremities antigravity. PSYCHIATRIC: Awake and alert, not agitated, normal mood and affect. SKIN: No obvious rashes, no jaundice, normal turgor. Results: Labs 06/07/25 11:28 06/07/25 11:28 Labs: Short CBC 06/07/25 Range/Units 11:28 WBC 11.1 H (3.6-11.0) Thou/mm3 Hgb 13.1 (12.0-16.0) g/dL Hct 40.0 (36.0-46.0) % Plt Count 268 (140-440) Thou/mm3 BMP 06/07/25 11:28 Sodium 139 Potassium 4.1 Chloride 106 Carbon Dioxide 23.4 BUN 9 Creatinine 0.9 Glucose 119 H Calcium 9.6 Cardiac Enzymes 06/07/25 Range/Units 11:28 Troponin I < 0.002 (0.0-0.045) ng/mL Liver Function 06/07/25 Range/Units 11:28 Total Bilirubin 0.3 (0.3-1.2) mg/dL AST 23 (0-34) U/L ALT 16 (10-49) U/L Alkaline Phosphatase 80 (46-116) U/L Albumin 5.0 H (3.4-4.8) gm/dL Urine 06/07/25 Range/Units 11:30 Urine Color Lt-Yellow (Lt Yel-Yel) Urine Clarity Turbid A (Clear/Hazy) Urine pH 7.0 (5.0-7.0) Ur Specific [place] 1.005 (1.001-1.035) Urine Protein Negative (Neg - Trace) Urine Glucose (UA) Negative (Negative) Quality Measures Quality Measures VTE prophylaxis and stroke Suspected type of Stroke: Unknown at this time Last known well (date): 06/07/25 Last known well (time): 08:00 Tenecteplase given: Reason(s) Tenecteplase not given: Refusal not given Rehab services: PT evaluation ordered and Speech Language Pathology eval ordered VTE Prophylaxis: pharmaceutical Antithrombotic by day 2:: ordered Statin ordered: >75 y/o moderate or high intensity dose Anticoagulation ordered for A-fib or flutter (current or hx): ordered Advance care planning discussed with:: patient Medications Home Medications and Allergies Home Medications ?Medication ?Instructions ?Recorded ?Confirmed ?Type lorazepam 0.5 mg tablet (Ativan) 0.5 mg PO Q8HR PRN AN XIETY (MILD) 01/18/14 History #0 tabs Allergies Allergy/AdvReac Type Severity Reaction Status Date / Time No Known Allergies Allergy Verified 06/07/25 11:01 Visit Medications Acetaminophen (Acetaminophen 325 Mg Tablet) 650 mg PO Q6H PRN PRN Reason: Fever >100.1 or pain Stop: 07/07/25 14:46 Labetalol HCl (Labetalol Inj 5 Mg/Ml Vial 20 Ml) 10 mg IVP Q4HR PRN PRN Reason: SBP>220/110 Stop: 07/07/25 14:56 Ondansetron HCl (Ondansetron Inj 2 Mg/Ml Inj 2 Ml) 4 mg IVP Q6H PRN; Protocol PRN Reason: NAUSEA OR VOMITING Stop: 07/07/25 14:46 Sennosides (Senna Tablet) 1 tab PO QDAY PRN; Protocol PRN Reason: constipation Stop: 07/07/25 14:46 Discontinued Medications Aspirin (Aspirin Ec 81 Mg Tabec) 81 mg PO X1 ONE Stop: 06/07/25 12:07 Last Admin: 06/07/25 12:16 Dose: 81 mg Clopidogrel Bisulfate (Clopidogrel Bisulfate 75 Mg Tablet) 300 mg PO X1 ONE Stop: 06/07/25 12:07 Last Admin: 06/07/25 12:16 Dose: 300 mg Ondansetron HCl (Ondansetron Inj 2 Mg/Ml Inj 2 Ml) 4 mg IVP Q4HR PRN PRN Reason: NAUSEA OR VOMITING Stop: 07/07/25 11:13 Assessment & Plan Plan Ms Puga is a 80 yo woman with a pmh significant for CVA about 2 years ago with residual right facial hemiplegia, esophageal ulcers, t2dm, breast cancer in remission, and OA who presented to the ED with cc of L facial weakness and ground level fall in her bathroom admitted for stroke rule out. L facial droop, slurred speech, and dizziness- now resolved c/f TIA Hx of CVA 2 years ago Patient was offered TNK, however pt declined Residual R sided facial droop and slurred speech. NIHSS score of 0 Dx * NCHCT Negative for acute hemorrhage, mass effect or midline shift * CTA head and neck: No significant neck arterial stenoses No cerebral large vessel arterial occlusions or thrombus * Brain MRI pending * Echo pending * A1c * TSH * Lipid panel * Every 4 hours neuro checks * Telemetry neurology consulted recommends; admission * In-house neurologist consulted: Dr. Love, appreciate recs * Consult physical therapy * Consult speech Tx * ASA 81 mg daily * Clopidogrel 300mg x1 * Clopidogrel 75 mg daily * Atorvastatin 40 mg at bedtime * APAP 650 mg every 6hrs as needed * Hydralazine 10 mg every 8 hours as needed for SBP greater than 180 * Keep euglycemic * Head a bed 30 degrees * Permissive hypertension in the first 48 hours continue to hold home antihypertensives ?Bactiuria vs simple UTI UA with nitrites, leuk esterase, WBC, and bacteria pending Ucx - if symptomatic give abx T2DM, not on insulin A1c pending - ISS q6hr given pt is npo pending swallow eval Gastric Ulcers -protonix 40 qd Osteoarthritis - APAP 650 prn Anxiety home lorazapam 0.5 mg PO Dispo: tele pending MRI, in house neuro recs, pending echo Diet: carb consistent (once swallow screen passed) Bowel Reg: senna dousate prn, once pass swallow eval VTE ppx: lovenox 40 qd GI ppx: protonix 40 qd Code status: FULL Plan discussed with Dr. Del Castillo and Dr. Kyra Gonzalez MD PGY1
--- NOTE | 2025-06-07 17:49 | PC.NURSE ---
REPORT CALLED TO SHNANAN MOORE
--- NOTE | 2025-06-07 18:42 | PC.NURSE ---
PATIENT TAKEN TO MRI BEFORE GOING UPSTAIRS. PATIENT'S BELONGINGS SENT WITH SON. VITALS STABLE.
[2025-06-07] MEDS: ATORVASTATIN CALCIUM 20 MG TABLET 80 MG PO (21:07)
[2025-06-07] MEDS: ACETAMINOPHEN 325 MG TABLET 650 MG PO (21:07)
[2025-06-08] VITALS: BP 129/63; PULSE 59; PULSE 60; RESP 20; TEMP 37.1; O2SAT 98
[2025-06-08 02:16] VITALS: PULSE 81; RESP 17; RESP 95
[2025-06-08 04:00] VITALS: BP 124/55; PULSE 61; PULSE 63; RESP 33; TEMP 36.7; O2SAT 96
[2025-06-08 04:44] VITALS: BMI 28.5
[2025-06-08 05:28] LABS: Basophils # (Auto) 0.0 Thou/mm3 (0.0-0.2); Basophils % (Auto) 1 % (0-2.5); Eosinophils # (Auto) 0.6 Thou/mm3 (0.0-0.5); Eosinophils % (Auto) 9 % (0-10); Hematocrit 36.0 % (36.0-46.0); Hemoglobin 11.7 g/dL (12.0-16.0); Immature Granulocytes Auto 0.02 Thou/mm3 (0.00-0.00); Lymphocytes # (Auto) 2.5 Thou/mm3 (1.0-4.8); Lymphocytes % (Auto) 34 % (10-50); Mean Corpuscular HGB Conc 32.5 g/dl (31.0-37.0); Mean Corpuscular Hemoglobin 29.5 pg (25.0-35.0); Mean Corpuscular Volume 91 fL (80-100); Monocytes # (Auto) 0.5 Thou/mm3 (0.0-0.8); Monocytes % (Auto) 7 % (0-12); Neutrophils # (Auto) 3.6 Thou/mm3 (1.8-7.7); Neutrophils % (Auto) 49 % (37-80); Nucleated Red Blood Cell # 0.00 Thou/mm3 (0.00-0.00); Nucleated Red Blood Cell % 0 /100 WBC (0); Platelet Count 242 Thou/mm3 (140-440); RDW Standard Deviation 45.9 fL (36.4-46.3); Red Blood Count 3.96 Miln/mm3 (4.00-5.20); White Blood Count 7.2 Thou/mm3 (3.6-11.0)
[2025-06-08 05:35] LABS: Glucose Estimated Average 128 mg/dL (80-131); Hemoglobin A1C 6.1 % Hgb (4.8-6.0)
[2025-06-08 06:06] LABS: Alanine Aminotransferase 12 U/L (10-49); Albumin, Serum 4.1 gm/dL (3.4-4.8); Albumin/Globulin Ratio 1.7 (1.2-2.2); Alkaline Phosphatase 71 U/L (46-116); Anion Gap 11 (7-16); Aspartate Amino Transferase < 10 U/L (0-34); BUN/Creatinine Ratio 9 Ratio (12-20); Bilirubin,Total 0.4 mg/dL (0.3-1.2); Blood Urea Nitrogen 8 mg/dL (9-23); Calcium 9.4 mg/dL (8.3-10.6); Calcium (Corrected) 9.4 mg/dL (8.5-10.1); Carbon Dioxide 24.2 mMol/L (20.0-31.0); Cardiac Risk Estimate 6.2 RATIO (3.7-5.6); Chloride 108 mMol/L (98-107); Cholesterol 185 mg/dL (132-200); Creatinine (Component) 0.9 mg/dL (0.6-1.3); Estimated Creatinine Clearance 47.5 mL/min (>60); Globulin 2.4 gm/dL (2.3-3.5); Glucose 133 mg/dL (74-106); HDL Cholesterol 30 mg/dL (40-60); LDL Cholesterol,Calculated 116 mg/dL (0-130); Magnesium 2.1 mg/dL (1.6-2.6); Osmolality,Calculated 285 (275-295); Phosphorous 4.0 mg/dL (2.4-5.1); Potassium 3.7 mMol/L (3.4-5.1); Sodium 143 mMol/L (136-145); Thyroid Stimulating Hormone 3.42 uIU/mL (0.55-4.78); Total Protein 6.5 gm/dL (5.7-8.2); Triglycerides 194 mg/dL (30-150); eGFR > 60 See Note
--- NOTE | 2025-06-08 06:10 | PC.NURSE ---
DR. PARDO MADE AWARE OF BIGEMINAL PAC'S. PT RESTING COMFORTABLY. CHEM PANEL PENDING FOR THIS MORNING. NO C/O CP. NO NEW ORDERS AT THIS TIME.
[2025-06-08 08:00] VITALS: BP 142/72; PULSE 66; PULSE 77; RESP 18; TEMP 37.1; O2SAT 97
--- NOTE | 2025-06-08 08:42 | PCS.ST ---
Swallowing Evaluation completed. See report for details. Pt can tolerate soft chopped foods/regular liquids. No s/s of aspiration.
[2025-06-08] MEDS: ENOXAPARIN SOD INJ 40 MG/0.4 ML SYRINGE SC (08:55)
[2025-06-08] MEDS: ASPIRIN EC 81 MG TABEC PO (08:56)
[2025-06-08 12:00] VITALS: BP 135/78; PULSE 72; PULSE 80; RESP 16; TEMP 36.6; O2SAT 98
--- NOTE | 2025-06-08 13:36 | PD.RESPRO ---
Documentation for date of: 06/08/25 Subjective Subjective Interval history: Patient was seen and examined at the bedside. No acute overnight events were reported. Patient has been eating well without any difficulty. Vitals showed slightly elevated blood pressure. Labs showed normocytic anemia. Electrolyte panel unremarkable. Kidney function remained stable. A1c 6.1. Triglycerides 194. Currently pending on the echo. Recommended to continue aspirin and statin. Safe to dc from neuro stand point. Exam Vital Signs Temp Pulse Resp BP Pulse Ox O2 Del Method 98.8 F 80 18 142/72 H 97 Room Air 06/08/25 08:00 06/08/25 12:00 06/08/25 08:00 06/08/25 08:00 06/08/25 08:00 06/08/25 08:00 Narrative Exam GENERAL APPEARANCE: AxOx4, elderly female no acute distress. HEENT: NC, AT. MMM. EOMI, clear conjunctiva, oropharynx clear. NECK: Supple without lymphadenopathy. No stiffness or restricted ROM. HEART:Regular rate and regular rhythm, normal S1/S2, no m/r/g LUNGS: CTAB, moving air well. No crackles or wheezes are heard. ABDOMEN: Soft, nontender, nondistended with good bowel sounds heard. BACK: No CVAT, no obvious deformity. EXTREMITIES: Without cyanosis, clubbing or edema. NEUROLOGICAL: Grossly nonfocal. Alert and oriented, moving all 4 extremities. CN not formally tested but appear grossly intact. Skin: Warm and dry without any rash. Psych: appriopriate mood and affect Objective Labs 06/08/25 04:56 06/08/25 04:56 Labs: Laboratory Results - last 24 hr 06/08/25 04:56 WBC 7.2 RBC 3.96 L Hgb 11.7 L Hct 36.0 MCV 91 MCH 29.5 MCHC 32.5 RDW Std Deviation 45.9 Plt Count 242 Neut % (Auto) 49 Lymph % (Auto) 34 [place] % (Auto) 7 Eos % (Auto) 9 Baso % (Auto) 1 Neut # (Auto) 3.6 Lymph # (Auto) 2.5 [place] # (Auto) 0.5 Eos # (Auto) 0.6 H Baso # (Auto) 0.0 Immature Gran # (Auto) 0.02 H Absolute Nucleated RBC 0.00 Immature Gran % 0 Nucleated RBC % 0 Sodium 143 Potassium 3.7 Chloride 108 H Carbon Dioxide 24.2 Anion Gap 11 BUN 8 L Creatinine 0.9 Estim Creat Clear Calc 47.5 L eGFR > 60 BUN/Creatinine Ratio 9 L Glucose [address] Glu mg/dL 128 Hemoglobin A1c 6.1 H Calculated Osmolality 285 Calcium 9.4 Corrected Calcium 9.4 Phosphorus 4.0 Magnesium 2.1 Total Bilirubin 0.4 AST < 10 ALT 12 Alkaline Phosphatase 71 Total Protein 6.5 Albumin 4.1 D Globulin 2.4 Albumin/Globulin Ratio 1.7 Triglycerides 194 H Cholesterol 185 LDL Cholesterol, Calc 116 HDL Cholesterol 30 L Cholesterol/HDL Ratio 6.2 H TSH 3.42 Quality Measures Quality Measures VTE prophylaxis (Lovenox) Advance care planning discussed with:: other Assessment & Plan Assessment Current Active Medications: Generic Name Dose Route Start Last Admin Trade Name Freq PRN Reason Stop Dose Admin Acetaminophen 650 mg 06/07/25 14:47 06/07/25 21:07 Acetaminophen 325 Mg Tablet PO 07/07/25 14:46 650 mg Q6H PRN Administration Fever >100.1 or pain Aspirin 81 mg 06/08/25 09:00 06/08/25 08:56 Aspirin Ec 81 Mg Tabec PO 07/08/25 08:59 81 mg DAILY YORDAN Administration Atorvastatin Calcium 80 mg 06/07/25 21:00 06/07/25 21:07 Atorvastatin Calcium 20 Mg Tablet PO 07/07/25 20:59 80 mg HS YORDAN Administration Dextrose 25 ml 06/07/25 16:54 Dextrose 50%-Water Inj 50 Ml Syringe IV 07/07/25 16:53 Q15MIN PRN BG 50-70 responsive npo pt Dextrose 50 ml 06/07/25 16:54 Dextrose 50%-Water Inj 50 Ml Syringe IV 07/07/25 16:53 Q15MIN PRN BG <50 OR BG <70 & pt unresponsive Enoxaparin Sodium 40 mg 06/08/25 09:00 06/08/25 08:55 Enoxaparin Sod Inj 40 Mg/0.4 Ml Syringe SC 06/22/25 08:59 40 mg QDAY YORDAN Administration Glucagon 1 mg 06/07/25 16:54 Glucagon Inj 1 Mg Vial IM Q15MIN PRN BG <70, and no IV access Insulin Human Lispro 0 unit 06/08/25 07:30 06/08/25 12:09 Insulin Lispro (Admelog) 1 Unit/0.01 Ml Unit SC 07/08/25 07:29 Not Given ACHS YORDAN Protocol Labetalol HCl 10 mg 06/07/25 14:57 Labetalol Inj 5 Mg/Ml Vial 20 Ml IVP 07/07/25 14:56 Q4HR PRN SBP>220/110 Ondansetron HCl 4 mg 06/07/25 14:47 Ondansetron Inj 2 Mg/Ml Inj 2 Ml IVP 07/07/25 14:46 Q6H PRN NAUSEA OR VOMITING Protocol Pantoprazole Sodium 40 mg 06/08/25 09:00 06/08/25 08:54 Pantoprazole Inj 40 Mg Vial IVP 07/08/25 08:59 40 mg QDAY YORDAN Administration Sennosides 1 tab 06/07/25 14:47 Senna Tablet PO 07/07/25 14:46 QDAY PRN constipation Protocol Sennosides 1 tab 06/07/25 16:48 Senna/Docusate Sod 1 Tab Tablet PO 07/07/25 16:47 QDAY PRN CONSTIPATION Protocol Plan This patient is a 78-year-old female with past medical history of left occipital lobe stroke in June 2023 with baseline gait unsteadiness, basilar artery stenosis, anxiety, esophageal ulcers, hypertension, type 2 diabetes, breast cancer in remission, osteoporosis and osteoarthritis presented to the ED on 06/07/2025 with acute onset gait unsteadiness noted at 8 AM in the morning. Symptoms started improving. CT brain without contrast and head and neck CTA were negative. Admitted for stroke workup. #Stroke workup #Gait unsteadiness ? History of prior stroke occipital lobe June 2023 Patient presented with acute onset gait unsteadiness around 8 AM in the morning. Patient was within the window of receiving TNK however patient and her son refused given improvement in the deficits and risks involved with TNK. Aspirin and Plavix bolus were given x 1 in the ED. EKG showed sinus rhythm. QTc 424. Head CT and head and neck CTA showed no acute pathology. Brain MRI was negative. No acute infarct.Large old infarct left occipital lobe. Small old infarct right thalamus Plan: Recommended to continue aspirin 81 mg once daily and atorvastatin 80 mg HS daily. DC Plavix as MRI brain is negative for acute stroke Patient is stable to be discharged from neuro stand point Rec one antiplatelet therapy given hx of gastric ulcers #History of type 2 diabetes #History of gastric ulcers #History of osteoporosis #History of breast cancer in remission Rest of the management as per primary care team. -- Plan of care discussed with neurologist, Dr Kate Thompson MD, PGY 3 Attending Provider Attestation/Addendum I have seen and examined the patient at the bedside and I agreed with the resident's findings, assessment and plan of care. Reassurance given to the patient regarding the negative workup for acute stroke. She most likely has had either brainstem TIA/vertebrobasilar insufficiency from her atherosclerotic posterior circulation. Continue with aspirin 81 mg alone along with statin. With her history of gastric ulcers, no need for dual antiplatelet therapy even for short duration. Advised follow-up with neurology in 2 weeks.
--- NOTE | 2025-06-08 13:49 | PC.SS ---
Wheel Chairs Patients diagnosis creates mobility limitations that significantly impairs ability to participate in the patients activities of daily living either in their entirety, or in a reasonable time frame in the home and the patients mobility limitations can not be sufficiently resolved with an appropriately fitted cane or walker. Also the use of a manual wheelchair will sufficiently improve patient?s ability to participate in the activities of daily living in the home and the patient is willing to use the wheelchair that is provided in the home. The patient has some one in the home that is available, willing and able to provide assistance with the wheelchair.
[2025-06-08 15:04] VITALS: BP 166/78; PULSE 81; RESP 22; TEMP 36.2; O2SAT 95
--- NOTE | 2025-06-08 19:53 | ESDS_ITS ---
<Statement entered by Charles Rae MD - 06/10/25 17:42> I reviewed above note and agree with findings and plans. I have also personally examined the patient with medicine team and went over assessment and plan with medical team including employee communications intern and resident physician. Planned Discharge Date 06/08/25 DS: Providers Provider Date of admission: 06/07/25 13:56 Primary care physician: Ping Henry PA-C Admitting Provider: Charles Rae MD Attending Provider on Admission: Charles Rae MD Consults: 06/07/25 11:14 Consult to Neurology / Tele-Neurology Routine Comment: Consulting Provider: [facility] 06/07/25 14:52 Consult to Neurology / Tele-Neurology Routine Comment: Consulting Provider: Homar Love Referral Physical Therapy Routine Comment: Physician Instructions: Attending Provider on DC: Charles Rae MD Discharging Provider: Charles Rae MD DS: Diagnosis Problem List Completed Was Problem List Reviewed/Reconciled?: Yes Hospital Course Hospital Course Hospital course: Reason for hospitalization: weakness 2/2 TIA Patient is 80 yr female with PMH of CVA about 2 years ago with right hemiplegia, esophageal ulcers, t2dm, breast cancer in remission, and OA who presented to the ED 06/07/25 with weakness, left facial droop that started morning. Patient was with her son going to PCP when symptoms began. They promptly left for the ED and telemetry neuro was consulted. NIHSS score 0.CTA head, CTA head and neck were negative. Teleneuro recommended TNK however son declined at that time. Symptoms resolved while in the ED. She was admitted for stroke workup. MRI was negative for acute infarct but showed large old infarct left occipital lobe and small infarct in right thalamus. A1c was 6.1. Patient is to continue aspirin and atorvastatin daily. Plavix was discontinued as the brain MRI was negative for acute stroke and she has history of gastric ulcer bleeding. Patient is now in stable condition and ready for discharge. Recommendations were given as below. Discharge Recommendations: Resume previous medications. Continue taking aspirin and atorvastatin as management of stroke. Follow up with PCP in 1-2 weeks. Please see cardiology in 1-2 weeks for your echocardiogram results. Hospital Diagnoses: #Stroke workup #Gait unsteadiness #Weakness #TIA #History of type 2 diabetes #History of gastric ulcers #History of osteoporosis #History of breast cancer in remission The patient's management plan was discussed with my attending physician Dr. Rae. Alisa Del Castillo MD, PGY-2 Time Spent with Patient Time attestation: Total time spent providing and/or coordinating discharge services: Time spent: Greater than 30 minutes Quality: Stroke Pt Provided Written Stroke Discharge Instructions: Yes Exam Vital Signs Temp Pulse Resp BP Pulse Ox O2 Del Method 97.1 F 81 22 H 166/78 H 95 Room Air 06/08/25 15:04 06/08/25 15:04 06/08/25 15:04 06/08/25 15:04 06/08/25 15:04 06/08/25 15:04 Narrative Exam GENERAL APPEARANCE: AxOx4, elderly female no acute distress. HEENT: NC, AT. MMM. EOMI, clear conjunctiva, oropharynx clear. NECK: Supple without lymphadenopathy. No stiffness or restricted ROM. HEART:Regular rate and regular rhythm, normal S1/S2, no m/r/g LUNGS: CTAB, moving air well. No crackles or wheezes are heard. ABDOMEN: Soft, nontender, nondistended with good bowel sounds heard. BACK: No CVAT, no obvious deformity. EXTREMITIES: Without cyanosis, clubbing or edema. NEUROLOGICAL: Grossly nonfocal. Alert and oriented, moving all 4 extremities. CN not formally tested but appear grossly intact. Skin: Warm and dry without any rash. Psych: appriopriate mood and affect Discharge Plan Plan Patient Disposition: HOME (Self Care) Patient condition on transfer: Stable Prescriptions/Referrals Prescriptions/Med Rec: New aspirin 81 mg Tablet,Delayed Release (Dr/Ec) 81 mg PO DAILY 30 Days Qty: 30 0RF atorvastatin 80 mg tablet 80 mg PO HS 30 Days Qty: 30 0RF Continued latanoprost 0.005 % drops 1 drp OPHTHALMIC (EYE) HS Patient Comments: PONGA SKYE GOTA EN LOS DOS OJOS TODOS LOS D AL ACOSTARSE Rx Instructions: both eyes alprazolam 1 mg tablet 1 mg PO Q8HR PRN (Reason: anxiety) Patient Comments: TOME 1/2 TO 1 TABLETA POR VIA ORAL RUTH ANN VECES AL JOSE MANUEL CUANDO SEA NECESARIO POR ANXIETY. hydrocodone-acetaminophen 5-325 mg tablet 1 tab PO BID PRN (Reason: pain) Patient Comments: TAKE 1/2 - 1 TABLET BY MOUTH 2 TIMES A DAY FOR PAIN omeprazole 40 mg capsule,delayed release(DR/EC) 40 mg PO DAILY Patient Comments: 1 TAB BY MOUTH 1 TIME A DAY BEFORE MEALS FOR STOMACH aspirin 81 mg tablet,delayed release (DR/EC) 81 mg PO QDAY Qty: 30 2RF atorvastatin 80 mg tablet 80 mg PO QDAY Qty: 30 2RF Discontinued lorazepam [Ativan] 0.5 MG tablet 0.5 mg PO Q8HR PRN (Reason: ANXIETY (MILD)) Qty: 0 lorazepam 0.5 MG tablet 0.5 mg PO Q12HR Qty: 10 0RF Referrals: Matthias Khan MD [Physician, Cardiology] Ping Henry PA-C [Primary Care Provider, Family Practice] Patient/Caregiver Discharge Instructions Other Discharge Activity Instructions:: Resume previous medications. Continue taking aspirin and atorvastatin as management of stroke. Follow up with PCP in 1-2 weeks. Please see cardiology in 1-2 weeks for your echocardiogram results. Resume la medicaci?n anterior. Contin?e tomando aspirina y atorvastatina para el tratamiento del accidente cerebrovascular. Consulte con [facility] doctor en 1 o 2 semanas. Consulte con cardiolog?a en 1 o 2 semanas para obtener los resultados de [facility]. Education Materials: Fitting Your Walker, ED TIA: Transient Ischemic Attack, ED Walker Use Print Language: Mexican Stand Alone Forms: [facility] Award Info., Patient Portal Info Letter Discharge Order Discharge Orders: Discharge (Routine); Ordered 06/08/25 Ordered By: Alisa Del Castillo Quality Discharge Quality Measures VTE prophylaxis
== END 2025-06-08 15:05 | disposition home or self-care (01) | DRG 92 ==
LOC: SERX 12:54 → SERHOLD 14:56 → S2NX 19:36
PROVIDERS: Registered Nurse General Practice; Admitting Provider Internal Medicine; Emergency Provider Emergency Medicine; PCP Physician Assistant; Visit Provider Internal Medicine
DX: R29.810 Facial weakness (principal); I69.951 Hemiplegia and hemiparesis following unspecified cerebrovascular disease affecting right dominant side; R26.81 Unsteadiness on feet; I10 Essential (primary) hypertension; E11.9 Type 2 diabetes mellitus without complications; Z85.3 Personal history of malignant neoplasm of breast; M19.90 Unspecified osteoarthritis, unspecified site; F41.9 Anxiety disorder, unspecified; K25.9 Gastric ulcer, unspecified as acute or chronic, without hemorrhage or perforation; R47.81 Slurred speech; W18.30XA Fall on same level, unspecified, initial encounter; Y92.002 Bathroom of unspecified non-institutional (private) residence as the place of occurrence of the external cause; Z79.02 Long term (current) use of antithrombotics/antiplatelets; Z79.82 Long term (current) use of aspirin; Z79.899 Other long term (current) drug therapy; Z87.891 Personal history of nicotine dependence
CPT/HCPCS: 36415; 70450; 70496; 70498; 70544; 71045; 80053; 80061; 80307; 81001; 83036; 83735; 84100; 84443; 84484; 84703; 85025; 85610; 85730; 87077; 87086; 87186; 92610; 93005; 93306; 94762; 96374; 97162; 99285; A4649; J1650; J2470; Q9967; A9270

== ENCOUNTER 2025-06-17 10:30 | Inpatient (IN) | payer MEDICARE, MEDICAID, SELFPAY ==
--- NOTE | 2025-06-17 10:42 | PC.NURSE ---
NOTIFIED , OF R/O STROKE @[id number]
[2025-06-17 10:43] VITALS: BP 140/91; PULSE 79; RESP 18; TEMP 37.1; O2SAT 95
--- NOTE | 2025-06-17 10:45 | EDNOTE_ITS ---
Neuro Symptoms Deficit-RME/HPI General Chief Complaint: Neuro Symptoms/Deficit Stated Complaint: RIGHT SIDED WEAKNESS Time Seen by Provider: 06/17/25 10:44 Arrival date/time: 06/17/25 10:30 RME / HPI RME / HPI Narrative: 80 year old female with history of CVA, diabetes, breast cancer in remission presents to the ED, accompanied by son for evaluation of right-sided weakness and slurred speech. The patient reports that she went to bed at her usual state of health around 9:00pm last night. Upon awakening this morning, she noticed new onset right-sided weakness. Son reports the patient was dragging her right foot this morning, prompting return to the ED. No additional complaints reported at this time. Of note, the patient was evaluated here on 06/07/2025 for right facial droop and slurred speech. During that time patient was admitted for a stroke workup. Per EMR review, teleneurology had recommended TNK, but the family declined at that time. Related Data Home Medications ?Medication ?Instructions ?Recorded ?Confirmed alprazolam 1 mg tablet 1 mg PO Q8HR PRN anxiety 06/07/25 hydrocodone 5 mg-acetaminophen 325 1 tab PO BID PRN pa in 06/07/25 06/07/25 mg tablet latanoprost 0.005 % eye drops 1 drp ophthalmic (eye) H S 06/07/25 06/07/25 omeprazole 40 mg capsule,delayed 40 mg PO DAILY 06/07/25 release Previous Rx's ?Medication ?Instructions ?Recorded aspirin 81 mg tablet,delayed 81 mg PO QDAY #30 tabs release atorvastatin 80 mg tablet 80 mg PO QDAY #30 tabs 06/26 aspirin 81 mg tablet,delayed 81 mg PO DAILY 30 days #3 0 tabs 06/08/25 release atorvastatin 80 mg tablet 80 mg PO HS 30 days #30 tabs 06/08/25 Allergies Allergy/AdvReac Type Severity Reaction Status Date / Time No Known Allergies Allergy Verified 06/17/25 10:34 Review of Systems Review of Systems Systems Reviewed: All systems reviewed, normal except as documented Past Medical History Past Medical History NEUROLOGIC: Positive Neurological Disorders, Cerebrovascular Accident and Dementia CARDIAC: Positive Hypercholesterolemia, Aneurysm and Hypertension GASTROINTESTINAL: Positive Gastrointestinal Disorders and Ulcer REPRODUCTIVE: Positive Breast Cancer (IN REMISSION) MUSCULOSKELETAL: Positive Musculoskeletal Disorders and Arthritis ENDOCRINE: Positive Diabetes Mellitus Type 2 PSYCHO/SOCIAL: Positive Anxiety OTHER HISTORY: Positive Hospitalization, Falls, Radiation Therapy and Breast Cancer (IN REMISSION) Surgical History SURGICAL: Positive Lumpectomy (LEFT BREAST LUMPECTOMY) and Tubal Ligation Social History SMOKING STATUS: Never smoker SUBSTANCE USE: does not use ED Exam Narrative Physical exam: Constitutional: Awake, alert, nontoxic, no acute distress HEENT: NC, AT, EOMI Neck: Supple CV: RRR, no m/r/g Lungs: CTAB, no w/r/r, no respiratory distress. Abd: Soft, NT, NT, no HSM noted to palpation Extremities: No deformities, no edema noted Neuro: AAOx3, CN 2-12, dysarthria, RUE strength 4/5, 5/5 strength all other extremities, right upper and right lower extremity drift Skin: Warm, dry, intact Course Course Course Narrative: 1035h: Patient evaluated in old triage. 1040h: 80-year-old female coming in for right-sided weakness that she woke up with she went to bed just before 9 PM. Stroke alert was called and workup ordered. Initial NIHSS of 3. 1120h: Teleneurology Dr. Hines called back regarding patient for stroke alert. Does not recommend TNK at this time. Recommends aspirin, permissive hypertension, admission for MRI and further workup. 1200h: Called team B for admission - requests call Dr. Rae direct. Called, no answer. Will try again in a bit. 1222h: Spoke with Dr. Rae regarding pts presentation and ED course thus far. Accepted for admission. Quality Measures Suspected type of Stroke: Non Acute Last known well (date): 06/16/25 Last known well (time): 21:00 Tenecteplase given: Reason(s) TPA not given: Outside the time window not given stroke Orders Category Date Time Status Bedside Blood Glucose NOW Care 06/17/25 10:44 Active COVID-19 Screening Questionnaire NOW Care 06/17/25 12:23 Active Steak Tenderizer Machine NOW Care 06/17/25 10:44 Active Continuous Pulse Oximetry NOW Care 06/17/25 10:44 Completed Decision to Admit X1 Care 06/17/25 12:23 Active EKG (ED ONLY) *Do not use* NOW Care 06/17/25 10:44 Completed In and Out Catheter NEEDED Care 06/17/25 10:44 Active Insert IV NOW Care 06/17/25 10:44 Active NIH Stroke Scale now Care 06/17/25 10:44 Active NPO NOW Care 06/17/25 10:44 Active Nurse Swallow Screen x1 Care 06/17/25 10:44 Active Consult to Neurology / Tele-Neurology Routine Cons 06/17/25 10:[address] angio stroke protocol Stat Exams 06/17/25 10:[address] stroke protocol Stat Exams 06/17/25 10:44 Completed EKG (ED Only) Stat Exams 06/17/25 10:44 Ordered XR chest 1V portable Stat Exams 06/17/25 10:44 Completed CBC Stat Lab 06/17/25 10:51 Completed Comprehensive Metabolic Panel Stat Lab 06/17/25 10:51 Completed Drug Screen,Urine Stat Lab 06/17/25 11:50 Completed Magnesium Stat Lab 06/17/25 10:51 Completed Partial Thromboplastin Time Stat Lab 06/17/25 10:51 Completed Prothrombin Time with INR Stat Lab 06/17/25 10:51 Completed Troponin I Stat Lab 06/17/25 10:51 Completed Urinalysis, C/S if Indicated Stat Lab 06/17/25 11:50 Completed Urine Culture Stat Lab 06/17/25 11:50 Received Aspirin Chew Med 06/17/25 12:22 Discontinued 324 mg PO X1 ONE Vital Signs Vital signs: Vital Signs Temperature 98.8 F 06/17/25 10:43 Pulse Rate 79 06/17/25 10:43 Respiratory Rate 18 06/17/25 10:43 Blood Pressure 140/91 H 06/17/25 10:43 Pulse Oximetry (%) 95 06/17/25 10:43 Oxygen Delivery Method Room Air 06/17/25 10:43 Pulse ox is 95% on room air which is adequate. Neuro Symptoms / Deficit MDM Narrative MDM Narrative:: Kathe Ibarra am scribing for and in the presence of Dr. Long. Patient data External records reviewed:: [facility] previous records Clinical information provided by:: patient Social determinants that could affect healthcare access:: none Patient has the following chronic illnesses:: CVA, diabetes, breast cancer in remission How is presenting disease/condition affected by chronic disease/condition?: exacerbated by Evaluation data The following diagnostics were reviewed and interpreted by me:: lab results and radiology exam(s) Lab and/or radiology exams considered but not ordered:: None Interpretation Summary: Ordering Physician: Rebeca Long MD Date of Service: 06/17/25 Procedure(s): XR chest 1V portable Accession Number(s): [id number] cc: Walter Salazar MD; Rebeca Long MD~ Examination: AP chest single view Technique one AP portable upright chest single view Date and time: June 17, 2025, 1122 hours, comparison 06/07/2025 INDICATIONS: Stroke alert FINDINGS: Normal heart size Ectatic thoracic aorta. No aspiration pneumonia. Prominent osteopenia IMPRESSION: No aspiration pneumonia Dictated By: Walter Salazar MD Signed By: <Electronically signed by Walter Salazar MD in OV> 06/17/25 1130 ========= Ordering Physician: Rebeca Long MD Date of Service: 06/17/25 Procedure(s): CT stroke protocol Accession Number(s): [id number] cc: Walter Salazar MD; Rebeca Long MD~ Examination: CT brain head without contrast. 2-D sagittal coronal reconstructions Date and time of exam:June 17, 2025, 1049 hours, comparison 06/07/2025 INDICATIONS: Stroke alert, onset right-sided body weakness beginning 6:00 AM this morning CTDI: vol (mGy):45.4 DLP: (mGycm):917 Technique: Multiple CT axial sections of the brain have been obtained, 5 mm slice thickness. Contrast has not been administered. 2-D sagittal, coronal reconstructions have been obtained Low dose protocols were performed. One or more of the following dose reduction techniques were used; automated exposure control, adjustment of the mA and/or KV according to patient size, use of iterative reconstruction technique. Findings: No significant ventricular enlargement. Again noted encephalomalacia left occipital lobe, cerebral calcifications Again noted frontal atrophy Again noted old infarct left cerebellar hemisphere Intra-axial or extra-axial hemorrhage density is not seen. No mass effect or midline shift Basal cisterns are not remarkable. Fourth ventricle is midline. Cranial vault intact. Impression: No interval acute hemorrhage, mass effect or midline shift Dictated By: Walter Salazar MD Signed By: <Electronically signed by Walter Salazar MD in OV> 06/17/25 1103 ========= Ordering Physician: Rebeca Long MD Date of Service: 06/17/25 Procedure(s): CT angio stroke protocol Accession Number(s): [id number] cc: Walter Salazar MD; Rebeca Long MD~ Examination: CTA carotids with intravenous contrast CTA brain, head with intravenous contrast. 2-D sagittal, coronal reconstructions. 3-D reconstructions. Exam date and time: June 17, 2025, 1119 hours, comparison 06/07 2025 INDICATIONS: Stroke alert this morning, onset right-sided body weakness beginning 6:00 AM CTDI: vol (mGy) 27.5 DLP: (mGycm) 163 Technique: Multiple CTA axial brain, head carotid images post intravenous contrast injection 75 cc, [id number]. 2-D sagittal, coronal reconstructions. 3-D reconstructions, 3-D post processing including vascular maximum intensity projection images. Low dose protocols were performed. One or more of the following dose reduction techniques were used; automated exposure control, adjustment of the mA and/or KV according to patient size, use of iterative reconstruction technique. Findings: 10 to 30% stenosis right carotid bifurcation origin right internal carotid artery 10-30% stenosis left carotid bifurcation origin left internal carotid artery Dominant left vertebral artery with no critical stenoses Juxtasellar supraclinoid portions internal carotid arteries fill No large vessel occlusions involving M1 segments middle cerebral arteries middle cerebral artery trifurcation vessels, basilar artery, posterior cerebral branches or anterior cerebral arteries IMPRESSION: No significant neck arterial stenoses No cerebral large vessel arterial occlusions or thrombus Dictated By: Walter Salazar MD Signed By: <Electronically signed by Walter Salazar MD in OV> 06/17/25 1143 Medications / Prescriptions Medications or Prescriptions considered but not ordered:: None Medication administrations:: Medication Administration History Acetaminophen (Acetaminophen 325 Mg Tablet) 650 mg PO Q6H PRN PRN Reason: Fever >101.5 Stop: 07/17/25 13:33 Acetaminophen (Acetaminophen 325 Mg Tablet) 650 mg PO Q6H PRN PRN Reason: PAIN SCALE 1-3 (mild Stop: 07/17/25 13:33 Hydrocodone Bitart/Acetaminophen (Hydrocodone/Apap 10/325 Tab) 1 tab PO Q4HR PRN PRN Reason: PAIN SCALE 7-10 (Severe Stop: 06/22/25 13:33 Aspirin (Aspirin Ec 81 Mg Tabec) 81 mg PO QDAY YORDAN Stop: 07/18/25 08:59 Dextrose (Dextrose 50%-Water Inj 50 Ml Syringe) 25 ml IV Q15MIN PRN PRN Reason: BG 50-70 responsive npo pt Stop: 07/17/25 13:46 Dextrose (Dextrose 50%-Water Inj 50 Ml Syringe) 50 ml IV Q15MIN PRN PRN Reason: BG <50 OR BG <70 & pt unresponsive Stop: 07/17/25 13:46 Glucagon (Glucagon Inj 1 Mg Vial) 1 mg IM Q15MIN PRN PRN Reason: BG <70, and no IV access Insulin Human Lispro (Insulin Lispro (Admelog) 1 Unit/0.01 Ml Unit) 0 unit SC [facility]; Protocol Stop: 07/17/25 16:59 Labetalol HCl (Labetalol Inj 5 Mg/Ml Vial 20 Ml) 10 mg IVP Q2H PRN PRN Reason: BP>220/105 Stop: 07/17/25 13:42 Ondansetron HCl (Ondansetron Inj 2 Mg/Ml Inj 2 Ml) 4 mg IVP Q6H PRN; Protocol PRN Reason: NAUSEA OR VOMITING Stop: 07/17/25 13:33 Oxycodone/Acetaminophen (Oxycodone/Apap 5/325 Tablet) 1 tab PO Q6H PRN PRN Reason: PAIN SCALE 4-6 (Moderate Stop: 06/22/25 13:33 Pantoprazole Sodium (Pantoprazole Inj 40 Mg Vial) 40 mg IVP Q12HR YORDAN Stop: 07/17/25 20:59 Sennosides (Senna Tablet) 1 tab PO QDAY PRN; Protocol PRN Reason: constipation Stop: 07/17/25 13:33 Discontinued Medications Aspirin (Aspirin 81 Mg Chew) 324 mg PO X1 ONE Stop: 06/17/25 12:23 Last Admin: 06/17/25 13:28 Dose: 324 mg Documented By: ED See above Consultations Consultation(s) initiated? (list below): Yes Consultation #1 (Physician, Specialty, Details): See course Diagnosis Neuro Differential Diagnosis: cerebrovascular accident, transient cerebral ischemia and other (ICH ) Most likely diagnosis given after review of the tests above:: CVA Admission Indicated Admission indicated?: indicated Admission Request Was there a request for admission?: Yes Admission Attestation Admission request attestation: Discussed case with [] from Hospitalist service regarding admission. Discussed patients ED course, exam findings, labs, and radiology results. The Hospitalist [agrees,declines] to accept the patient for admission. Disposition Plan Disposition Plan: Admit Discharge Plan Plan Patient Disposition: Admit Acute Care w/in Hospital Problem List Clinical Impression: CVA (cerebral vascular accident)
--- NOTE | 2025-06-17 10:56 | PC.NURSE ---
Pt. here from home with son, for right arm weakness, that started at 7 this morning when pt. woke up. Pt. states right arm weakness, pt. son states that pt. was dragging right foot. Pt. son states that pt. was slurring her words last night. Pt. going to CT.
--- NOTE | 2025-06-17 10:58 | PC.NURSE ---
Pt. taken to CT via [facility].
[2025-06-17 10:59] LABS: Basophils # (Auto) 0.0 Thou/mm3 (0.0-0.2); Basophils % (Auto) 0 % (0-2.5); Eosinophils # (Auto) 0.4 Thou/mm3 (0.0-0.5); Eosinophils % (Auto) 3 % (0-10); Hematocrit 37.2 % (36.0-46.0); Hemoglobin 12.4 g/dL (12.0-16.0); Immature Granulocytes Auto 0.05 Thou/mm3 (0.00-0.00); Lymphocytes # (Auto) 2.5 Thou/mm3 (1.0-4.8); Lymphocytes % (Auto) 20 % (10-50); Mean Corpuscular HGB Conc 33.3 g/dl (31.0-37.0); Mean Corpuscular Hemoglobin 30.4 pg (25.0-35.0); Mean Corpuscular Volume 91 fL (80-100); Monocytes # (Auto) 0.8 Thou/mm3 (0.0-0.8); Monocytes % (Auto) 6 % (0-12); Neutrophils # (Auto) 8.5 Thou/mm3 (1.8-7.7); Neutrophils % (Auto) 70 % (37-80); Nucleated Red Blood Cell # 0.00 Thou/mm3 (0.00-0.00); Nucleated Red Blood Cell % 0 /100 WBC (0); Platelet Count 270 Thou/mm3 (140-440); RDW Standard Deviation 46.1 fL (36.4-46.3); Red Blood Count 4.08 Miln/mm3 (4.00-5.20); White Blood Count 12.2 Thou/mm3 (3.6-11.0)
--- NOTE | 2025-06-17 11:00 | PC.NURSE ---
Dr. Bryon Hines on tele monitor to see pt.'s CT, then Dr. Bryon Hines talking with pt.
[2025-06-17 11:14] LABS: INR 1.0 (0.9-1.3); Partial Thromboplastin Time 29.2 Seconds (22.0-36.0); Prothrombin Time 11.0 Seconds (9.0-12.2)
[2025-06-17 11:15] VITALS: BMI 29.4
--- NOTE | 2025-06-17 11:15 | PD.EDNEURO ---
Neuro Symptoms Deficit-RME/HPI General Chief Complaint: Neuro Symptoms/Deficit Stated Complaint: RIGHT SIDED WEAKNESS Time Seen by Provider: 06/17/25 10:44 Arrival date/time: 06/17/25 10:30 RME / HPI RME / HPI Narrative: 80 year old female with history of CVA, diabetes, breast cancer in remission presents to the ED brought in by son for evaluation of right-sided weakness and slurred speech. Patient reports she woke with the weakness and had felt at her usual state of health last night before going to sleep at 9PM. Per son, patient was dragging her right foot this morning prompting return to the ED. Son mentioned the patient had been evaluated here 1 week ago for right facial droop with slurred speech and was admitted for stroke work-up. Per EMR review, the teleneurologist had recommended TNK however family declined. No other compaints reported. Related Data Home Medications ?Medication ?Instructions ?Recorded ?Confirmed alprazolam 1 mg tablet 1 mg PO Q8HR PRN anxiety 06/07/25 06/07/25 hydrocodone 5 mg-acetaminophen 325 1 tab PO BID PRN pain 06/07/25 06/07/25 mg tablet latanoprost 0.005 % eye drops 1 drp ophthalmic (eye) HS 06/07/25 06/07/25 omeprazole 40 mg capsule,delayed 40 mg PO DAILY 06/07/25 06/07/25 release Previous Rx's ?Medication ?Instructions ?Recorded aspirin 81 mg tablet,delayed 81 mg PO QDAY #30 tabs 06/26/23 release atorvastatin 80 mg tablet 80 mg PO QDAY #30 tabs 06/26/23 aspirin 81 mg tablet,delayed 81 mg PO DAILY 30 days #30 tabs 06/08/25 release atorvastatin 80 mg tablet 80 mg PO HS 30 days #30 tabs 06/08/25 Allergies Allergy/AdvReac Type Severity Reaction Status Date / Time No Known Allergies Allergy Verified 06/17/25 10:34 Course Course Course Narrative: 1040h: 80-year-old female coming in for right-sided weakness that she woke up with she went to bed just before 9 PM. Stroke alert was called and workup ordered. Initial NIHSS of 3. 1120h: Teleneurology called back regarding patient for stroke alert. Does not recommend TNK at this time. Recommends aspirin, permissive hypertension, admission for MRI and further workup. Quality Measures none Orders Category Date Time Status Bedside Blood Glucose NOW Care 06/17/25 10:44 Active Senior Ux Designer NOW Care 06/17/25 10:44 Active Continuous Pulse Oximetry NOW Care 06/17/25 10:44 Active EKG (ED ONLY) *Do not use* NOW Care 06/17/25 10:44 Active In and Out Catheter NEEDED Care 06/17/25 10:44 Active Insert IV NOW Care 06/17/25 10:44 Active NIH Stroke Scale now Care 06/17/25 10:44 Active NPO NOW Care 06/17/25 10:44 Active Nurse Swallow Screen x1 Care 06/17/25 10:44 Active Consult to Neurology / Tele-Neurology Routine Cons 06/17/25 10:[address] angio stroke protocol Stat Exams 06/17/25 10:[address] stroke protocol Stat Exams 06/17/25 10:44 Completed EKG (ED Only) Stat Exams 06/17/25 10:44 Ordered XR chest 1V portable Stat Exams 06/17/25 10:44 Ordered CBC Stat Lab 06/17/25 10:51 Received Comprehensive Metabolic Panel Stat Lab 06/17/25 10:51 Received Drug Screen,Urine Stat Lab 06/17/25 10:44 Ordered Magnesium Stat Lab 06/17/25 10:51 Received Partial Thromboplastin Time Stat Lab 06/17/25 10:51 Completed Prothrombin Time with INR Stat Lab 06/17/25 10:51 Completed Troponin I Stat Lab 06/17/25 10:51 Received Urinalysis, C/S if Indicated Stat Lab 06/17/25 10:44 Ordered Vital Signs Vital signs: Vital Signs Temperature 98.8 F 06/17/25 10:43 Pulse Rate 79 06/17/25 10:43 Respiratory Rate 18 06/17/25 10:43 Blood Pressure 140/91 H 06/17/25 10:43 Pulse Oximetry (%) 95 06/17/25 10:43 Oxygen Delivery Method Room Air 06/17/25 10:43 Discharge Plan Prescriptions/Referrals Prescriptions/Med Rec: No Action latanoprost 0.005 % drops 1 drp OPHTHALMIC (EYE) HS Patient Comments: PONGA SKYE GOTA EN LOS DOS OJOS TODOS LOS D AL ACOSTARSE Rx Instructions: both eyes alprazolam 1 mg tablet 1 mg PO Q8HR PRN (Reason: anxiety) Patient Comments: TOME 1/2 TO 1 TABLETA POR VIA ORAL RUTH ANN VECES AL JOSE MANUEL CUANDO SEA NECESARIO POR ANXIETY. hydrocodone-acetaminophen 5-325 mg tablet 1 tab PO BID PRN (Reason: pain) Patient Comments: TAKE 1/2 - 1 TABLET BY MOUTH 2 TIMES A DAY FOR PAIN omeprazole 40 mg capsule,delayed release(DR/EC) 40 mg PO DAILY Patient Comments: 1 TAB BY MOUTH 1 TIME A DAY BEFORE MEALS FOR STOMACH aspirin 81 mg Tablet,Delayed Release (Dr/Ec) 81 mg PO DAILY 30 Days Qty: 30 0RF atorvastatin 80 mg tablet 80 mg PO HS 30 Days Qty: 30 0RF aspirin 81 mg tablet,delayed release (DR/EC) 81 mg PO QDAY Qty: 30 2RF atorvastatin 80 mg tablet 80 mg PO QDAY Qty: 30 2RF Patient/Caregiver Discharge Instructions Print Language: Omani
--- NOTE | 2025-06-17 11:19 | ESCONSULT_ITS ---
Tele Neuro Consultation Consultation Date 06/17/25 Most Recent Vital Signs Last Vital Signs Temp 98.8 F 06/17/25 10:43 Pulse 79 06/17/25 10:43 Resp 18 06/17/25 10:43 BP 140/91 H 06/17/25 10:43 Pulse Ox 95 06/17/25 10:43 O2 Del Method Room Air 06/17/25 10:43 Laboratory-Coagulation Panel PT 11.0 Seconds (9.0-12.2) 06/17/25 10:51 INR 1.0 (0.9-1.3) 06/17/25 10:51 APTT 29.2 Seconds (22.0-36.0) 06/17/25 10:51 Consultation Narrative [facility] TeleNeurology Consult Services Patient Name:???CATALINA RODRIGUEZ Date of :???1945 Identification Number:??? Date of Service:???06/17/2025 10:51:56 Diagnosis:?I63.89 - Cerebrovascular accident (CVA) due to other mechanism ([facility]) Impression: ?This is a 80 yo F w a PMHX of stroke (L occipital, R thalamic), who presents to the ED with the acute onset of R sided weakness. She was last known to be at baseline at 9PM when going to bed last night. Immediately noticed the symptoms when woke up today and had trouble getting out of bed. Despite the old strokes, she reports she has not had these symptoms before. On arrival to the ED her symptoms remain persistent. BP was found to be 140 systolic. ?Of note she was here over a week ago with R facial droop and slurred speech. Stroke workup was negative at that time. ?Physical exam revealing for RUE and RLE weakness and sensory loss. ?Labs pending ?Imaging pending official read. Old strokes seen in the L occipital lobe. ?Etiology of presentation could be from a CVA. ?Would consider unmasking of prior unnoticed or dormant stroke symptoms in the setting of toxic/metabolic/infectious/hemodynamic changes. ?-If official CTH with no bleed allow BP goal for 220/110 and below. ASA 81 ?-MRI brain w/o con (inpatient) ?-CTA head and neck-->if LVO found, will DW MALINDA ?-2D echo (if acute stroke is found) ?-UA, utox, thiamine, ammonia, TSH, B12, ABG, troponins, lactate, A1c, lipids, CBC, CMC, LFTs ? Our recommendations are outlined below. Recommendations: ? Stroke/Telemetry Floor ? Neuro Checks q4h ? Bedside Swallow Eval ? DVT Prophylaxis ? IV Fluids, Normal Saline ? Head of Bed 30 Degrees ? Euglycemia and Avoid Hyperthermia (PRN Acetaminophen) Advanced Imaging: Advanced Imaging Deferred because: Advanced Imaging not obtained at this time. Reason: not deferred, and pending completion Metrics: Last Known Well: 06/16/2025 21:00:00 Dispatch Time: 06/17/2025 10:51:56 Arrival Time: 06/17/2025 10:30:00 Initial Response Time: 06/17/2025 10:59:37Symptoms: R sided weakness. Initial patient interaction: 06/17/2025 11:01:59 NIHSS Assessment Completed: 06/17/2025 11:10:27Patient is not a candidate for Thrombolytic. Thrombolytic Medical Decision: 06/17/2025 11:10:30Patient was not deemed candidate for Thrombolytic because of following reasons: LKW outside 4.[address] Head: I personally reviewed all the CT images that were available to me and it showed: pending read Primary Provider Notified of Diagnostic Impression and Management Plan on: 06/17/2025 11:19:48 History of Present Illness:Patient is a 80 year old Female. Patient was brought by EMS for symptoms of R sided weakness. This is a 80 yo F w a PMHX of stroke (L occipital, R thalamic), who presents to the ED with the acute onset of R sided weakness. She was last known to be at baseline at 9PM when going to bed last night. Immediately noticed the symptoms when woke up today and had trouble getting out of bed. Despite the old strokes, she reports she has not had these symptoms before. On arrival to the ED her symptoms remain persistent. BP was found to be 140 systolic. She was taken for CTH and further evaluation. Decision on whether or not to give pharmacological thrombolysis was made based on indications, contraindications, and patient's disability status and preference. Medications: Anticoagulant use:??Unknown Antiplatelet use:?Unknown Reviewed EMR for current medications Allergies:? NKDA Social History: Smoking: No Alcohol Use: No Drug Use: No Family History: There is no family history of premature cerebrovascular disease pertinent to this consultation ROS : 14 Points Review of Systems was performed and was negative except mentioned in HPI. Past Surgical History: There Is No Surgical History Contributory To Today?s Visit Examination: BP(140/91),?Pulse(79), 1A: Level of Consciousness - Alert; keenly responsive?+ 0 1B: Ask Month and Age - Both Questions Right?+ 0 1C: Blink Eyes & Squeeze Hands - Performs Both Tasks?+ 0 2: Test Horizontal Extraocular Movements - Normal?+ 0 3: Test Visual Bolden - No Visual Loss?+ 0 4: Test Facial Palsy (Use Grimace if Obtunded) - Normal symmetry?+ 0 5A: Test Left Arm Motor Drift - No Drift for 10 Seconds?+ 0 5B: Test Right Arm Motor Drift - Drift, but doesn't hit bed?+ 1 6A: Test Left Leg Motor Drift - No Drift for 5 Seconds?+ 0 6B: Test Right Leg Motor Drift - Drift, but doesn't hit bed?+ 1 7: Test Limb Ataxia (FNF/Heel-Easton) - Ataxia in 1 Limb?+ 1 8: Test Sensation - Mild-Moderate Loss: Less Sharp/More Dull?+ 1 9: Test Language/Aphasia - Normal; No aphasia?+ 0 10: Test Dysarthria - Normal?+ 0 11: Test Extinction/Inattention - No abnormality?+ 0 NIHSS Score:?4 Pre-Morbid Modified [place] Scale: 1 Points = No significant disability despite symptoms; able to carry out all usual duties and activities Spoke with :?attending This consult was conducted in real time using interactive audio and video technology. Patient was informed of the technology being used for this visit and agreed to proceed. Patient located in hospital and provider located at home/office setting. Patient is being evaluated for possible acute neurologic impairment and high probability of imminent or life-threatening deterioration. I spent total of 35 minutes providing care to this patient, including time for face to face visit via telemedicine, review of medical records, imaging studies and discussion of findings with providers, the patient and/or family. Dr Bryon Hines [facility] For Inpatient follow-up with [facility] physician please call [facility] at . As we are not an outpatient service for any post hospital discharge needs please contact the hospital for assistance. If you have any questions for the [facility] physicians or need to reconsult for clinical or diagnostic changes please contact us via [facility] at . Signature :Julio Hines
[2025-06-17 11:29] LABS: Alanine Aminotransferase 14 U/L (10-49); Albumin, Serum 4.9 gm/dL (3.4-4.8); Albumin/Globulin Ratio 1.8 (1.2-2.2); Alkaline Phosphatase 73 U/L (46-116); Anion Gap 13 (7-16); Aspartate Amino Transferase 14 U/L (0-34); BUN/Creatinine Ratio 13 Ratio (12-20); Bilirubin,Total 0.8 mg/dL (0.3-1.2); Blood Urea Nitrogen 10 mg/dL (9-23); Calcium 9.5 mg/dL (8.3-10.6); Calcium (Corrected) 9.5 mg/dL (8.5-10.1); Carbon Dioxide 22.7 mMol/L (20.0-31.0); Chloride 104 mMol/L (98-107); Creatinine (Component) 0.8 mg/dL (0.6-1.3); Globulin 2.7 gm/dL (2.3-3.5); Glucose 123 mg/dL (74-106); Magnesium 1.8 mg/dL (1.6-2.6); Osmolality,Calculated 279 (275-295); Potassium 3.8 mMol/L (3.4-5.1); Sodium 140 mMol/L (136-145); Total Protein 7.6 gm/dL (5.7-8.2); Troponin I < 0.002 ng/mL (0.0-0.045); eGFR > 60 See Note
[2025-06-17 11:30] VITALS: BP 172/72; PULSE 80; RESP 17; TEMP 37.2; O2SAT 99
--- NOTE | 2025-06-17 11:33 | PC.NURSE ---
Pt. taken to RR via wheel chair, urine specimen obtained. Pt. back to bed in room 3, pt. son is bedside.
[2025-06-17 12:09] LABS: Collection Type, Urine Clean Catch
[2025-06-17 12:28] LABS: Amphetamine/Methamp Scrn,U Negative (Negative); Barbiturate Screen,Urine Negative (Negative); Benzodiazepines Screen,Urine Positive (Negative); Benzoylecgonine Screen, Ur Negative (Negative); Fentanyl Screen,Urine Negative (Negative); Opiate Screen,Urine Negative (Negative); THC Screen,Urine Negative (Negative)
[2025-06-17 12:31] LABS: Bacteria,Urine Rare; Bilirubin,Urine Negative (Negative); Blood,Urine 1+ (Negative); Clarity,Urine Turbid (Clear/Hazy); Color,Urine Colorless (Lt Yel-Yel); Glucose, Urine Negative (Negative); Ketones,Urine Negative (Negative); Leukocyte Esterase,Urine Positive (Negative); Nitrite,Urine Negative (Negative); PH,Urine 7.0 (5.0-7.0); Protein,Urine Negative (Neg - Trace); RBC,Urine 1 /hpf (0-3); Specific Gravity,Urine 1.011 (1.001-1.035); Squamous Epithelial Cell,Urine < 1 /hpf (0-5); Urobilinogen,Urine Negative mg/dL (0.0-1.0); WBC,Urine 96 /hpf (0-5)
[2025-06-17 12:34] LABS: Culture Indicated,Urine Yes
[2025-06-17] MEDS: ASPIRIN 81 MG CHEW 324 MG PO (13:28)
[2025-06-17 13:30] VITALS: BP 158/73; PULSE 82; RESP 17; O2SAT 98
--- NOTE | 2025-06-17 13:31 | PC.NURSE ---
Pt. sitting up in bed in room 3 eating a sandwich, pt. son is bedside.
--- NOTE | 2025-06-17 14:48 | ESHP_ITS ---
<Statement entered by Charles Rae MD - 06/25/25 08:18> I reviewed above note and agree with findings and plans. I have also personally examined the patient with medicine team and went over assessment and plan with medical team including international accounting manager and resident physician. <Statement entered by Matheus Jones MD - 06/17/25 16:23> I have personally seen and examined the patient. I agree with the resident's assessment and plan as documented below. Matheus Jones DO PGY-2 Internal Medicine - GME Documentation for date of: 06/17/25 HPI History of Present Illness History of present illness: History of Present Illness: Patient is a 80-year old female with past medical history of right hemipelgia, esophageal ulcers, type 2 diabetes, breast cancer, osteoarthritis, and left- sided facial droop (06/07/2025), presented to the hospital on 06/17/2025 due to right upper and lower extremity hemiplegia. She reports that upon awakening this morning, she was unable to reach for her phone and noticed that her right arm and leg were not moving. She denies facial weakness or sensory changes. Her son noted patient experienced slurred speech with dizziness at the time of onset. Of note, the patient was admitted on 06/07/2025 for left facial droop. Patient noted that her strength is coming back. Currently, patient refuses to take MRI head because she is claustrophobic. Denies chest pain, palpation, SOB, abdominal pain, N/V, fevers or chills. ED course: -WBC 12.2, Hgb 12.4, potassium 3.8, ammonia 23, troponin <0.002 -UA: turbid colorless urine, urine blood 1+, urine WBC 96, urine bacteria: rare. Toxicology Positive for urine benzodiazepine. -CXR (06/17/2025): Normal heart size, Ectatic thoracic aorta, No aspiration pneumonia, Prominent osteopenia. -CT head (06/17/2025): No interval acute hemorrhage, mass effect or midline shift -CTA head/neck (06/17/2025): No significant neck arterial stenoses, No cerebral large vessel arterial occlusions or thrombus -In ED, patient received Aspirin 324 mg PO x1 Medical history: As stated above Surgical history: Left breast masectomy due to cancer, hysterectomy Allergies: NKDA Medications: Pending official med rec Family history: Both parents were heavy smokers, had hemiplegia and due to heart attack. Social history: Denies drinking alcohol or using other illicit drugs. Patient has been chronic smoker >20 years, Smokes 2-3 cigarette every day. Patient has been admitted for management of Stroke R/o Review of Systems Review of Systems Narrative Review of Systems: All 12 systems assessed and the patient denies unless otherwise stated in HPI Exam Vital Signs Temp Pulse Resp BP Pulse Ox O2 Del Method 99.0 F 82 17 158/73 H 98 Room Air 06/17/25 11:30 06/17/25 13:30 06/17/25 13:30 06/17/25 13:30 06/17/25 13:30 06/17/25 13:30 Narrative Exam General: No acute distress, AAO x3, Elderly, Frail Eye: PERRL, EOMI, normal conjunctiva, no scleral icterus HENT: Normocephalic, atraumatic, hearing intact to conversation at normal volume, moist oral mucosa Neck: Supple, non-tender, no JVD, no lymphadenopathy Lungs: Non-labored respirations, symmetric chest rise, Clear to auscultate bilaterally, No wheezing, rhonchi, crackles Heart: Peripheral pulses intact bilaterally, Regular Rate and Rhythm. Abdomen: Soft, non-tender, non-distended, no palpable masses Musculoskeletal: No cyanosis or edema, No visible joint swelling, +4 muscle strength in right arm and leg. +5 muscle streanth in left arm/leg Skin: Skin is warm, dry, no rashes or lesions. Psychiatric: Cooperative, appropriate mood and affect, Awake and alert, not agitated Neuro: Cranial nerves II-XII grossly intact. Sensations intact to light touch. Results: Labs 06/17/25 10:51 06/17/25 10:51 Labs: Short CBC 06/17/25 Range/Units 10:51 WBC 12.2 H (3.6-11.0) Thou/mm3 Hgb 12.4 (12.0-16.0) g/dL Hct 37.2 (36.0-46.0) % Plt Count 270 (140-440) Thou/mm3 BMP 06/17/25 10:51 Sodium 140 Potassium 3.8 Chloride 104 Carbon Dioxide 22.7 BUN 10 Creatinine 0.8 Glucose 123 H Calcium 9.5 Cardiac Enzymes 06/17/25 Range/Units 10:51 Troponin I < 0.002 (0.0-0.045) ng/mL Liver Function 06/17/25 Range/Units 10:51 Total Bilirubin 0.8 (0.3-1.2) mg/dL AST 14 (0-34) U/L ALT 14 (10-49) U/L Alkaline Phosphatase 73 (46-116) U/L Albumin 4.9 H (3.4-4.8) gm/dL Urine 06/17/25 Range/Units 11:50 Urine Color Colorless A (Lt Yel-Yel) Urine Clarity Turbid A (Clear/Hazy) Urine pH 7.0 (5.0-7.0) Ur Specific [place] 1.011 (1.001-1.035) Urine Protein Negative (Neg - Trace) Urine Glucose (UA) Negative (Negative) Quality Measures Quality Measures stroke Suspected type of Stroke: Non Acute Last known well (date): 06/16/25 Last known well (time): 21:00 Tenecteplase given: Reason(s) Tenecteplase not given: Outside the time window not given Rehab services: PT evaluation ordered VTE Prophylaxis: mechanical Antithrombotic by day 2:: ordered Statin ordered: >75 y/o moderate or high intensity dose Anticoagulation ordered for A-fib or flutter (current or hx): not indicated Advance care planning discussed with:: patient and child Medications Home Medications and Allergies Home Medications ?Medication ?Instructions ?Recorded ?Confirmed ?Type alprazolam 1 mg tablet 1 mg PO Q8HR PRN anxiety 06/07/25 History hydrocodone 5 mg-acetaminophen 325 1 tab PO BID PRN pa in 06/07/25 06/07/25 History mg tablet latanoprost 0.005 % eye drops 1 drp ophthalmic (eye) H S 06/07/25 06/07/25 History omeprazole 40 mg capsule,delayed 40 mg PO DAILY 06/07/25 History release Allergies Allergy/AdvReac Type Severity Reaction Status Date / Time No Known Allergies Allergy Verified 06/17/25 10:34 Visit Medications Acetaminophen (Acetaminophen 325 Mg Tablet) 650 mg PO Q6H PRN PRN Reason: Fever >101.5 Stop: 07/17/25 13:33 Acetaminophen (Acetaminophen 325 Mg Tablet) 650 mg PO Q6H PRN PRN Reason: PAIN SCALE 1-3 (mild Stop: 07/17/25 13:33 Hydrocodone Bitart/Acetaminophen (Hydrocodone/Apap 10/325 Tab) 1 tab PO Q4HR PRN PRN Reason: PAIN SCALE 7-10 (Severe Stop: 06/22/25 13:33 Aspirin (Aspirin Ec 81 Mg Tabec) 81 mg PO QDAY YORDAN Stop: 07/18/25 08:59 Dextrose (Dextrose 50%-Water Inj 50 Ml Syringe) 25 ml IV Q15MIN PRN PRN Reason: BG 50-70 responsive npo pt Stop: 07/17/25 13:46 Dextrose (Dextrose 50%-Water Inj 50 Ml Syringe) 50 ml IV Q15MIN PRN PRN Reason: BG <50 OR BG <70 & pt unresponsive Stop: 07/17/25 13:46 Glucagon (Glucagon Inj 1 Mg Vial) 1 mg IM Q15MIN PRN PRN Reason: BG <70, and no IV access Insulin Human Lispro (Insulin Lispro (Admelog) 1 Unit/0.01 Ml Unit) 0 unit [facility]; Protocol Stop: 07/17/25 16:59 Labetalol HCl (Labetalol Inj 5 Mg/Ml Vial 20 Ml) 10 mg IVP Q2H PRN PRN Reason: BP>220/105 Stop: 07/17/25 13:42 Ondansetron HCl (Ondansetron Inj 2 Mg/Ml Inj 2 Ml) 4 mg IVP Q6H PRN; Protocol PRN Reason: NAUSEA OR VOMITING Stop: 07/17/25 13:33 Oxycodone/Acetaminophen (Oxycodone/Apap 5/325 Tablet) 1 tab PO Q6H PRN PRN Reason: PAIN SCALE 4-6 (Moderate Stop: 06/22/25 13:33 Sennosides (Senna Tablet) 1 tab PO QDAY PRN; Protocol PRN Reason: constipation Stop: 07/17/25 13:33 Discontinued Medications Aspirin (Aspirin 81 Mg Chew) 324 mg PO X1 ONE Stop: 06/17/25 12:23 Last Admin: 06/17/25 13:28 Dose: 324 mg Pantoprazole Sodium (Pantoprazole Inj 40 Mg Vial) [address] [facility] Stop: 07/17/25 20:59 Assessment & Plan Plan Patient is a 80-year old female with past medical history of right hemipelgia, esophageal ulcers, type 2 diabetes, breast cancer, osteoarthritis, and left- sided facial droop (06/07/2025), presented to the hospital on 06/17/2025 due to right upper and lower extremity hemiplegia. Patient has been admitted for management of Stroke R/o #Right hemiplegia of right upper and lower extremity, slurred speech, Dizziness #Hx of Left facial droop 06/07/2025 #Hx of CVA 2 years ago. -Patient with difficulty moving right arm and leg. -CXR (06/17/2025): Normal heart size, Ectatic thoracic aorta, No aspiration pneumonia, Prominent osteopenia. -CT head (06/17/2025): No interval acute hemorrhage, mass effect or midline shift -CTA head/neck (06/17/2025): No significant neck arterial stenoses, No cerebral large vessel arterial occlusions or thrombus -Previous brain MRI (06/07/2025): Negative for acute hemorrhage mass effect or midline shift, No acute infarct, Large old infarct left occipital lobe, Small old infarct right thalamus -Previous ECHO with bubble study (06/07/2025): Poor images over all but Bubble study was negative for any PFO or ASD. Consider WINIFRED if high index of clinical supsicion to rule out ant LA/ BETTIE thrombus. Normal left ventricular size and function. Estimated ejection fraction is 60-65%. Stage 1 diastolic dysfunction. Normal Right ventricular size and function. Normal RVSP. Trace MR, TR and Mild AV sclerosis without stenosis. No significant change since the prior study of 06/26/2023 -NIHSS score: 4 Plan: -Brain MRI ordered, but patient declined to take it due to clastrophobia. -Neuro Check q6hr -Bedside swallow eval -Head of bed 30 degrees -Labetalol 10 mg IV q2h prn if BP>220/105 -Zofran 4mg IV q6hr prn for Nausea or Vomiting. -TSH, A1c pending -Consulted physical therapy, and speech. -ASA 81mg daily -Atorvastatin 40g -Permissive Hypertension in the first 48hrs continue to hold home antihypertensives. -Neurology consulted, Dr. Love, thank you for recommendations #?UTI -UA: turbid colorless urine, urine blood 1+, urine WBC 96, urine bacteria: rare. Toxicology Positive for urine benzodiazepine -Patient is afebile and asymptomatic. Plan: -Urine culture pending. #Insulin independent Type 2 diabetes -Previous A1c (06/08/2025): 6.1 -Patient denies taking any insulin Plan: -On Insulin Sliding Scale. #Gastric Ulcers -Omeprazole 40mg qd #Anxiety -Alprazolam 1mg po Q8hr Disposition: Tele med for stroke r/o Diet: Low carb consistent diet after passing swallow eval GI prophylaxis: Pantoprazole DVT prophylaxis: SCD Code: Full Assessment and plan discussed with my attending physician Dr. Rae and Dr. Jones (PGY-2) Dr. Salazar (PGY-1) - Internal medicine resident
[2025-06-17 14:54] LABS: Lactate (Lactic Acid) 1.6 mMol/L (0.4-2.0)
[2025-06-17 15:17] LABS: Ammonia 23 uMol/L (11-32)
[2025-06-17 15:37] LABS: Thyroid Stimulating Hormone 1.21 uIU/mL (0.55-4.78)
--- NOTE | 2025-06-17 19:05 | PC.NURSE ---
Patient alert and oriented to self, place, time. Right upper and lower extremity hemiplegia. Upon assessment, patient was able to raise right arm but drifted to the bed within 10 seconds, and was able to raise right leg with no drift. Patient [facility] to bed and maintained steady balance and stated she was shuffling over. Skin intact. bed locked and in lowest position, personal belonings and call light within reach. Home meds taken to pharmacy.
[2025-06-17 20:00] VITALS: BP 154/70; PULSE 74; PULSE 75; RESP 28; TEMP 36.6; O2SAT 97
--- NOTE | 2025-06-17 20:46 | PD.RESCONSUL ---
HPI Data of Consult Requesting Physician: Charles Rae MD Admitting Provider: Charles Rae MD Attending Provider: Charles Rae MD Primary Care Provider: Ping Henry PA-C Consult Narrative Reason for consult: Stroke workup , right side weakness and sensory loss History of present illness: Gali Rebolledo is 80 yr female with PMH of right hemipelgia, esophageal ulcers, type 2 diabetes, breast cancer, osteoarthritis, and left-sided facial droop (06/07/2025) presented to hospital today due to right side weakness and sensory loss. She was recently hospitalized on 06/07 for similar neurologic symptoms. At her prior admission CT/CTA head and neck were negative for acute hemorrhage or LVO. WINIFRED at that time showed normal EF 60-65% with no PFO. She was discharged on aspirin and atorvastatin. She reports adherence to medications. Today, she again developed right-sided weakness and numbness. On arrival and NIHSS score was 4. CT head showed no acute hemorrhage, CTA was negative for LVO. She denies any chest pain, dyspnea, headache, vision changes, speech difficulty, syncope, trauma. Vitals are stable, labs unremarkable. Glucose on admission 123, A1c from prior admission 6.1. Cholesterol at that time 185, triglycerides 194, LDL 116, HDL 30. TSH 1.21 on this admission. Patient was admitted for further workup. cc:: cc: Charles Rae MD Exam Vital Signs Temp Pulse Resp BP Pulse Ox O2 Del Method 97.9 F 75 28 H 154/70 H 97 Room Air 06/17/25 20:00 06/17/25 20:00 06/17/25 20:00 06/17/25 20:00 06/17/25 20:00 06/17/25 20:00 Narrative Exam General: Elderly female, No acute distress, cooperative HEENT: NCAT, No JVD noted. Mucosa dry. Pupils are equal and reactive to light bilaterally Cardiovascular: Normal S1 and S2. Regular rate and rhythm. Respiratory: Lungs are clear to auscultation bilaterally. No wheezing or crackles heard. Abdomen: Soft, nontender, not distended, normal bowel sounds. Skin: Warm to touch, dry, no rashes noted Musculoskeletal: No gross injuries. Able to move all 4 extremities. No pitting edema Neuro: Alert and oriented x3. CN grossly intact, strength 5/5 in upper extremity, lower extremity. Noted to have dysarthria, similar presentation on last admission. [id number] dysmetria on right. Psych: Normal affect and mood Results Labs 06/17/25 10:51 06/17/25 10:51 Labs: Short CBC 06/17/25 Range/Units 10:51 WBC 12.2 H (3.6-11.0) Thou/mm3 Hgb 12.4 (12.0-16.0) g/dL Hct 37.2 (36.0-46.0) % Plt Count 270 (140-440) Thou/mm3 BMP 06/17/25 10:51 Sodium 140 Potassium 3.8 Chloride 104 Carbon Dioxide 22.7 BUN 10 Creatinine 0.8 Glucose 123 H Calcium 9.5 Cardiac Enzymes 06/17/25 Range/Units 10:51 Troponin I < 0.002 (0.0-0.045) ng/mL Liver Function 06/17/25 Range/Units 10:51 Total Bilirubin 0.8 (0.3-1.2) mg/dL AST 14 (0-34) U/L ALT 14 (10-49) U/L Alkaline Phosphatase 73 (46-116) U/L Albumin 4.9 H (3.4-4.8) gm/dL Urine 06/17/25 Range/Units 11:50 Urine Color Colorless A (Lt Yel-Yel) Urine Clarity Turbid A (Clear/Hazy) Urine pH 7.0 (5.0-7.0) Ur Specific [place] 1.011 (1.001-1.035) Urine Protein Negative (Neg - Trace) Urine Glucose (UA) Negative (Negative) Quality Measures Quality Measures stroke Suspected type of Stroke: Non Acute Last known well (date): 06/16/25 Last known well (time): 21:00 Tenecteplase given: Reason(s) Tenecteplase not given: Outside the time window not given Rehab services: PT evaluation ordered and Speech Language Pathology eval ordered VTE Prophylaxis: mechanical Antithrombotic by day 2:: ordered Statin ordered: >75 y/o moderate or high intensity dose Anticoagulation ordered for A-fib or flutter (current or hx): not indicated Advance care planning discussed with:: patient and child Medications Home Medications and Allergies Home Medications ?Medication ?Instructions ?Recorded ?Confirmed ?Type alprazolam 1 mg tablet 1 mg PO Q8HR PRN anxiety 06/07/25 06/17/25 History hydrocodone 5 mg-acetaminophen 325 1 tab PO BID PRN pain 06/07/25 06/17/25 History mg tablet latanoprost 0.005 % eye drops 1 drp ophthalmic (eye) HS 06/07/25 06/17/25 History omeprazole 40 mg capsule,delayed 40 mg PO DAILY 06/07/25 06/17/25 History release metformin 500 mg tablet,extended 500 mg PO HS 06/17/25 06/17/25 History release 24 hr Allergies Allergy/AdvReac Type Severity Reaction Status Date / Time No Known Allergies Allergy Verified 06/17/25 10:34 Visit Medications Acetaminophen (Acetaminophen 325 Mg Tablet) 650 mg PO Q6H PRN PRN Reason: Fever >101.5 Stop: 07/17/25 13:33 Acetaminophen (Acetaminophen 325 Mg Tablet) 650 mg PO Q6H PRN PRN Reason: PAIN SCALE 1-3 (mild Stop: 07/17/25 13:33 Hydrocodone Bitart/Acetaminophen (Hydrocodone/Apap 325 Tab) 1 tab PO Q4HR PRN PRN Reason: PAIN SCALE 7-10 (Severe Stop: 06/22/25 13:33 Aspirin (Aspirin Ec 81 Mg Tabec) 81 mg PO QDAY [facility] Stop: 07/18/25 08:59 Atorvastatin Calcium (Atorvastatin Calcium 20 Mg Tablet) 40 mg PO HS [facility] Stop: 07/17/25 20:59 Dextrose (Dextrose 50%-Water Inj 50 Ml Syringe) 25 ml IV Q15MIN PRN PRN Reason: BG 50-70 responsive npo pt Stop: 07/17/25 13:46 Dextrose (Dextrose 50%-Water Inj 50 Ml Syringe) 50 ml IV Q15MIN PRN PRN Reason: BG <50 OR BG <70 & pt unresponsive Stop: 07/17/25 13:46 Glucagon (Glucagon Inj 1 Mg Vial) 1 mg IM Q15MIN PRN PRN Reason: BG <70, and no IV access Insulin Human Lispro (Insulin Lispro (Admelog) 1 Unit/0.01 Ml Unit) 0 unit SC [facility]; Protocol Stop: 07/17/25 16:59 Last Admin: 06/17/25 17:42 Dose: Not Given Labetalol HCl (Labetalol Inj 5 Mg/Ml Vial 20 Ml) 10 mg IVP Q2H PRN PRN Reason: BP>220/105 Stop: 07/17/25 13:42 Ondansetron HCl (Ondansetron Inj 2 Mg/Ml Inj 2 Ml) 4 mg IVP Q6H PRN; Protocol PRN Reason: NAUSEA OR VOMITING Stop: 07/17/25 13:33 Oxycodone/Acetaminophen (Oxycodone/Apap 5/325 Tablet) 1 tab PO Q6H PRN PRN Reason: PAIN SCALE 4-6 (Moderate Stop: 06/22/25 13:33 Sennosides (Senna Tablet) 1 tab PO QDAY PRN; Protocol PRN Reason: constipation Stop: 07/17/25 13:33 Discontinued Medications Alprazolam (Alprazolam 0.25 Mg Tablet) 0.25 mg PO X1 ONE Stop: 06/17/25 20:06 Aspirin (Aspirin 81 Mg Chew) 324 mg PO X1 ONE Stop: 06/17/25 12:23 Last Admin: 06/17/25 13:28 Dose: 324 mg Pantoprazole Sodium (Pantoprazole Inj 40 Mg Vial) 40 mg IVP Q12HR YORDAN Stop: 07/17/25 20:59 Assessment & Plan Plan 80-year-old female PMH of right hemipelgia, esophageal ulcers, type 2 diabetes, breast cancer, osteoarthritis, and left-sided facial droop (06/07/2025) presented to hospital 06/17 due to right side weakness and sensory loss. Low suspicion for new ischemic stroke given recent extensive workup, but given recurrent focal deficits, addmited her for monitoring and secondary stroke evaluation. #Right side weakness #Sensory loss #Previous CVA Likely continued residual deficits from her previous stroke. Patient also does not remain active. Less likely another TIA or ischemic stroke. NIHSS 4, currently on aspirin and atorvastatin, with negative CT/CTA and recent negative echocardiogram. Glucose on admission 123, A1c from prior admission 6.1. Cholesterol at that time 185, triglycerides 194, LDL 116, HDL 30. TSH 1.21 -brain MRI pending -Neuro Check q6hr -Bedside swallow eval -Head of bed 30 degrees -Labetalol 10 mg IV q2h prn if BP>220/105 -Zofran 4mg IV q6hr prn for Nausea or Vomiting. -Consulted physical therapy, and speech. -ASA 81mg daily -Atorvastatin 40g -Permissive Hypertension in the first 48hrs continue to hold home antihypertensives. #Insulin independent Type 2 diabetes -Previous A1c (06/08/2025): 6.1 -Patient denies taking any insulin Plan: -On Insulin Sliding Scale. #Gastric Ulcers #Anxiety Primary care team to manage above conditions and ongoing care needs. The patient's management plan was discussed with my attending physician Dr. Love. Alisa Del Castillo, PGY-2 Attending Provider Attestation/Addendum I personally have seen and examined the patient at the bedside and I agreed with the resident's findings, assessment and plan of care. Patient presenting symptoms of worsening right-sided weakness, with a negative initial workup, unlikely to have another ischemic event. Will check vitamin B12 and vitamin D level to look for secondary causes for generalized weakness. Patient just got admitted and got a detailed workup. Continue with aspirin and statin and physical therapy evaluation. She would need front wheel walker upon discharge.
[2025-06-17] MEDS: ATORVASTATIN CALCIUM 20 MG TABLET 40 MG PO (20:54)
[2025-06-18] VITALS: BP 141/69; PULSE 74; PULSE 78; RESP 19; TEMP 36.4; O2SAT 95
[2025-06-18 04:00] VITALS: BP 120/56; PULSE 80; RESP 28; TEMP 36.9; O2SAT 96
[2025-06-18 04:50] VITALS: BMI 28.8
[2025-06-18 05:57] LABS: Basophils # (Auto) 0.0 Thou/mm3 (0.0-0.2); Basophils % (Auto) 0 % (0-2.5); Eosinophils # (Auto) 0.7 Thou/mm3 (0.0-0.5); Eosinophils % (Auto) 7 % (0-10); Hematocrit 35.1 % (36.0-46.0); Hemoglobin 11.5 g/dL (12.0-16.0); Immature Granulocytes Auto 0.05 Thou/mm3 (0.00-0.00); Lymphocytes # (Auto) 2.7 Thou/mm3 (1.0-4.8); Lymphocytes % (Auto) 26 % (10-50); Mean Corpuscular HGB Conc 32.8 g/dl (31.0-37.0); Mean Corpuscular Hemoglobin 29.9 pg (25.0-35.0); Mean Corpuscular Volume 91 fL (80-100); Monocytes # (Auto) 0.7 Thou/mm3 (0.0-0.8); Monocytes % (Auto) 7 % (0-12); Neutrophils # (Auto) 6.1 Thou/mm3 (1.8-7.7); Neutrophils % (Auto) 60 % (37-80); Nucleated Red Blood Cell # 0.00 Thou/mm3 (0.00-0.00); Nucleated Red Blood Cell % 0 /100 WBC (0); Platelet Count 268 Thou/mm3 (140-440); RDW Standard Deviation 46.2 fL (36.4-46.3); Red Blood Count 3.85 Miln/mm3 (4.00-5.20); White Blood Count 10.2 Thou/mm3 (3.6-11.0)
[2025-06-18 06:24] LABS: Alanine Aminotransferase 12 U/L (10-49); Albumin, Serum 4.3 gm/dL (3.4-4.8); Albumin/Globulin Ratio 1.7 (1.2-2.2); Alkaline Phosphatase 63 U/L (46-116); Anion Gap 12 (7-16); Aspartate Amino Transferase 10 U/L (0-34); BUN/Creatinine Ratio 16 Ratio (12-20); Bilirubin,Total 0.6 mg/dL (0.3-1.2); Blood Urea Nitrogen 13 mg/dL (9-23); Calcium 9.4 mg/dL (8.3-10.6); Calcium (Corrected) 9.4 mg/dL (8.5-10.1); Carbon Dioxide 23.1 mMol/L (20.0-31.0); Chloride 109 mMol/L (98-107); Creatinine (Component) 0.8 mg/dL (0.6-1.3); Estimated Creatinine Clearance 53.7 mL/min (>60); Globulin 2.6 gm/dL (2.3-3.5); Glucose 130 mg/dL (74-106); Magnesium 2.1 mg/dL (1.6-2.6); Osmolality,Calculated 288 (275-295); Phosphorous 4.1 mg/dL (2.4-5.1); Potassium 3.6 mMol/L (3.4-5.1); Sodium 144 mMol/L (136-145); Total Protein 6.9 gm/dL (5.7-8.2); eGFR > 60 See Note
[2025-06-18 08:00] VITALS: BP 145/67; PULSE 70; PULSE 74; RESP 20; TEMP 36.4; O2SAT 96
[2025-06-18] MEDS: ASPIRIN EC 81 MG TABEC PO (10:02)
--- NOTE | 2025-06-18 10:27 | PC.NURSE ---
pt refusing MRI and CT md aware (Robert)
--- NOTE | 2025-06-18 11:59 | PC.SS ---
Update: Patient is refusing CT and MRI procedures.
[2025-06-18 12:00] VITALS: BP 155/85; PULSE 78; PULSE 80; RESP 20; TEMP 36.7; O2SAT 96
--- NOTE | 2025-06-18 13:34 | PC.SS ---
DME referral submitted on [facility]. No preferred vendor. Responses pending. Documentation placed in chart.
--- NOTE | 2025-06-18 13:36 | PC.SS ---
Walkers The diagnosis creates mobility limitation that significantly impairs ability to participate in the patients activities of daily living either in their entirety, or in a reasonable time frame. Also the patient is able to safely use the walker and the patient?s mobility is sufficiently resolved with the use of the walker and cane has been ruled out.
--- NOTE | 2025-06-18 13:40 | ESDS_ITS ---
<Statement entered by Charles Rae MD - 06/25/25 08:18> I reviewed above note and agree with findings and plans. I have also personally examined the patient with medicine team and went over assessment and plan with medical team including internal medicine physician and resident physician. Planned Discharge Date 06/18/25 DS: Providers Provider Date of admission: 06/17/25 13:34 Primary care physician: Ping Henry PA-C Admitting Provider: Charles Rae MD Attending Provider on Admission: Charles Rae MD Consults: 06/17/25 10:44 Consult to Neurology / Tele-Neurology Routine Comment: Consulting Provider: [facility] 06/17/25 15:27 Referral Physical Therapy Routine Comment: Physician Instructions: 06/17/25 15:44 Referral Speech Therapy Routine Comment: 06/18/25 13:50 Consult to Neurology / Tele-Neurology Routine Comment: Stroke R/o Consulting Provider: Homar Love Attending Provider on DC: Nishant Salazar DO Discharging Provider: Nishant Salazar DO DS: Diagnosis Problem List Completed Was Problem List Reviewed/Reconciled?: Yes Hospital Course Hospital Course Hospital course: Summary: Patient is a 80-year old female with past medical history of right hemipelgia, esophageal ulcers, type 2 diabetes, breast cancer, osteoarthritis, and left- sided facial droop (06/07/2025), presented to the hospital on 06/17/2025 due to right upper and lower extremity hemiplegia and was admitted for stroke r/o. CXR, CT head wo contrast, CTA head/neck were negative, but patient refused to take brain MRI or repeat CT head. Medical team explained the importance of the stroke protocol, but patient ultimately declined. Patient was discharged with aspirin and atorvastatin. ED course: -WBC 12.2, Hgb 12.4, potassium 3.8, ammonia 23, troponin <0.002 -UA: turbid colorless urine, urine blood 1+, urine WBC 96, urine bacteria: rare. Toxicology Positive for urine benzodiazepine. -CXR (06/17/2025): Normal heart size, Ectatic thoracic aorta, No aspiration pneumonia, Prominent osteopenia. -CT head (06/17/2025): No interval acute hemorrhage, mass effect or midline shift -CTA head/neck (06/17/2025): No significant neck arterial stenoses, No cerebral large vessel arterial occlusions or thrombus -In ED, patient received Aspirin 324 mg PO x1 Hospital Course: Given negative chest x-ray, CT head, CTA head and neck, patient was recommended to receive brain MRI. However patient noted that she is claustrophobic and showed extreme anxiety taking the MRI. Hospital team explained about stroke protocol which includes brain MRI. However the patient ultimately declined to take the brain MRI. Medical team explained to the patient thoroughly possibility of new stroke cannot be completely ruled out without taking brain MRI. However the patient ultimately declined to take the brain MRI. Patient noted that her muscle strength is coming back. Patient was discharged with aspirin and atorvastatin. Instructions: Continue taking home medications as prescribed - important to continue Aspirin and Atorvastatin to lower risk of developing another TIA or stroke Please follow-up with your PCP within 1 week of discharge or follow-up at the [facility] [address] [place] [address] Follow-up with neurology within 1-2 weeks of discharge If your symptoms worsen or if you develop new chest pain, shortness of breath, dizziness or severe headache - please come back to the ED immediately. 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 #?UTI #Insulin independent Type 2 diabetes #Gastric Ulcers #Anxiety Assessment and plan discussed with my attending physician Dr. Kyra Salazar (PGY-1) - Internal medicine resident Status at Discharge Overall status at discharge: patient is progressing back to baseline Time Spent with Patient Time attestation: Total time spent providing and/or coordinating discharge services: Time spent: Greater than 30 minutes Exam Vital Signs Temp Pulse Resp BP Pulse Ox O2 Del Method 97.6 F 78 20 145/67 H 96 Room Air 06/18/25 08:00 06/18/25 12:00 06/18/25 08:00 06/18/25 08:00 06/18/25 08:00 06/18/25 08:00 Narrative Exam General: No acute distress, AAO x3, Elderly, Frail Eye: PERRL, EOMI, normal conjunctiva, no scleral icterus HENT: Normocephalic, atraumatic, hearing intact to conversation at normal volume, moist oral mucosa Neck: Supple, non-tender, no JVD, no lymphadenopathy Lungs: Non-labored respirations, symmetric chest rise, Clear to auscultate bilaterally, No wheezing, rhonchi, crackles Heart: Peripheral pulses intact bilaterally, Regular Rate and Rhythm. Abdomen: Soft, non-tender, non-distended, no palpable masses Musculoskeletal: No cyanosis or edema, No visible joint swelling, +4 muscle strength in right arm and leg. +5 muscle streanth in left arm/leg Skin: Skin is warm, dry, no rashes or lesions. Psychiatric: Cooperative, appropriate mood and affect, Awake and alert, not agitated Neuro: Cranial nerves II-XII grossly intact. Sensations intact to light touch. Discharge Plan Problem List Was Problem List Reviewed/Reconciled?: Yes Plan Patient condition on transfer: Stable Care Plan Goals: Continue taking home medications as prescribed - important to continue Aspirin and Atorvastatin to lower risk of developing another TIA or stroke Please follow-up with your PCP within 1 week of discharge or follow-up at the [facility] [address] [place] [address] Follow-up with neurology within 1-2 weeks of discharge If your symptoms worsen or if you develop new chest pain, shortness of breath, dizziness or severe headache - please come back to the ED immediately. Prescriptions/Referrals Prescriptions/Med Rec: Continued latanoprost 0.005 % drops 1 drp OPHTHALMIC (EYE) HS Patient Comments: PONGA SKYE GOTA EN LOS DOS OJOS TODOS LOS D AL ACOSTARSE Rx Instructions: both eyes alprazolam 1 mg tablet 1 mg PO Q8HR PRN (Reason: anxiety) Patient Comments: TOME 1/2 TO 1 TABLETA POR VIA ORAL RUTH ANN VECES AL JOSE MANUEL CUANDO SEA NECESARIO POR ANXIETY. hydrocodone-acetaminophen 5-325 mg tablet 1 tab PO BID PRN (Reason: pain) Patient Comments: TAKE 1/2 - 1 TABLET BY MOUTH 2 TIMES A DAY FOR PAIN omeprazole 40 mg capsule,delayed release(DR/EC) 40 mg PO DAILY Patient Comments: 1 TAB BY MOUTH 1 TIME A DAY BEFORE MEALS FOR STOMACH aspirin 81 mg Tablet,Delayed Release (Dr/Ec) 81 mg PO DAILY 30 Days Qty: 30 0RF atorvastatin 80 mg tablet 80 mg PO HS 30 Days Qty: 30 0RF Discontinued aspirin 81 mg tablet,delayed release (DR/EC) 81 mg PO QDAY Qty: 30 2RF atorvastatin 80 mg tablet 80 mg PO QDAY Qty: 30 2RF metformin 500 mg tablet extended release 24 hr 500 mg PO HS Patient Comments: TOME 1 TABLETA POR V A ORAL TODOS LOS D AL ACOSTARSE FOR DIABETES Referrals: Homar Love MD [Physician, Neurology] Ping Henry PA-C [Primary Care Provider, Family Practice] Patient/Caregiver Discharge Instructions Education Materials: What Is a TIA?, Discharge Instructions for Stroke, Arm Care After a Stroke Print Language: Belarusian Discharge Order Discharge Orders: Discharge (Routine); Ordered 06/18/25 Ordered By: Matheus Jones Quality Discharge Quality Measures VTE prophylaxis
--- NOTE | 2025-06-18 13:41 | PC.SS ---
SERVICE ESTABLISHMENT ATTENDANT notified by DME vendor that patient's insurance is stating that patient is not eligible for DME until 07-22-25. SERVICE ESTABLISHMENT ATTENDANT notified patient and family at bedside. Family will provide walker on behalf of the patient. Bedside nurse updated.
--- NOTE | 2025-06-18 14:21 | PC.SS ---
Rounding Note: Plan is to d/c patient home today.
--- NOTE | 2025-06-18 14:38 | PC.SS ---
PHOTO GRAPHICS LIBRARIAN conducted bedside contact with the patient conduct initial assessment and to discuss discharge planning.? PHOTO GRAPHICS LIBRARIAN utilized linux consultant services, patient is Slovak speaking.? Patient confirmed demographic information.? Patient resides alone at home.? Patient reports that family members conduct daily visits with the patient.? Patient utilizes a wheelchair to assist with mobility.? Patient does not utilize home oxygen.? Patient requires assistance with some forms of ADL?s.? Patient?s family assists with completion of ADL?s.? Patient identified son, Avtar Rebolledo ; as surrogate medical decision maker.? Patient?s PCP is Ping Henry.? Patient possesses a memorial counselor could not recall name.? Patient?s neurologist is Dr. Uribe.? Patient does not participate with dialysis.? Patient utilizes [facility] for medication services.? Plan is for the patient to return home at the time of discharge.? Family will provide transportation on behalf of the patient.? No further discharge needs identified by the patient.? No further intervention required at this time, clinical social worker will be available to address any further concerns.? Next of Kin: Avtar Harmonierrez D/C Plan: Home
--- NOTE | 2025-06-18 14:39 | PC.SS ---
Patient's granddaughter: Danyelle .
--- NOTE | 2025-07-10 08:21 | PD.NEUROPROG ---
Documentation for date of: 06/18/25 Exam - Neurology Vital Signs Temp Pulse Resp BP Pulse Ox O2 Del Method 98.0 F 80 20 155/85 H 96 Room Air 06/18/25 12:00 06/18/25 12:00 06/18/25 12:00 06/18/25 12:00 06/18/25 12:00 06/18/25 12:00 Objective Labs 06/18/25 05:14 06/18/25 05:14
== END 2025-06-18 14:04 | disposition home or self-care (01) | DRG 69 ==
LOC: SERX 12:24 → SERHOLD 13:52 → S2NX 17:58
PROVIDERS: Admitting Provider Internal Medicine; Emergency Provider Family Medicine; PCP Physician Assistant; Visit Provider Internal Medicine
DX: G45.9 Transient cerebral ischemic attack, unspecified (principal); G81.91 Hemiplegia, unspecified affecting right dominant side; N39.0 Urinary tract infection, site not specified; R29.810 Facial weakness; F40.240 Claustrophobia; Z85.3 Personal history of malignant neoplasm of breast; E11.9 Type 2 diabetes mellitus without complications; R53.1 Weakness; K25.9 Gastric ulcer, unspecified as acute or chronic, without hemorrhage or perforation; F17.200 Nicotine dependence, unspecified, uncomplicated; R47.81 Slurred speech; Z79.82 Long term (current) use of aspirin; Z79.899 Other long term (current) drug therapy
CPT/HCPCS: 36415; 70450; 70496; 70498; 71045; 80053; 80307; 81001; 82140; 83605; 83735; 84100; 84443; 84484; 85025; 85610; 85730; 87077; 87081; 87086; 87186; 92610; 93005; 97162; 99285; A4649; Q9967; A9270